=== PATIENT | female | born 1945 | race Caucasian/White ===

== ENCOUNTER → 2020-03-12 10:05 | Outpatient (CLI) | payer MEDICARE, OTHER, SELFPAY ==
[2020-03-12 11:28] LABS: COVID19 -Nasal RAPID Negative (Negative)
== END ==
PROVIDERS: Family Provider Family Medicine; PCP Family Medicine; Referring Provider Physician Assistant; Visit Provider Physician Assistant
DX: Z20.828 Contact with and (suspected) exposure to other viral communicable diseases (principal)
CPT/HCPCS: 87635

== ENCOUNTER 2020-03-14 11:09 | Inpatient (IN) | payer MEDICARE, OTHER, SELFPAY ==
[2020-03-07 10:07] VITALS: BMI 27.3
[2020-03-14] VITALS (19 sets, daily range): BP systolic 127–174; BP diastolic 71–94; PULSE 64–77; RESP 10–94; TEMP 36.2–37.4; O2SAT 10–99; BMI 27.3
[2020-03-14] MEDS: PREGABALIN 75 MG CAPSULE PO ×2 (12:00→12:01)
[2020-03-14] MEDS: CELECOXIB 200 MG CAPSULE PO (12:01)
[2020-03-14] MEDS: ACETAMINOPHEN 325 MG TABLET 975 MG PO (12:01)
[2020-03-14] MEDS: LACTATED RINGERS 1,000 ML 42 ML IV ×2 (12:05→14:59)
--- NOTE | 2020-03-14 12:18 | DI.RAD.S_ITS ---
PROCEDURE: XR SHOULDER RT MIN 2V INDICATIONS: post operative reverse total shoulder TECHNIQUE: Single frontal view of the shoulder were acquired. COMPARISON: None. FINDINGS: Bones: No fractures or dislocations. No suspicious bony lesions. Visualized ribs appear intact. Soft tissues: No suspicious soft tissue calcifications. IMPRESSION: Normal alignment after right total shoulder arthroplasty. Dictated by: Deric Butler M.D. on 03/14/2020 at 16:23 Approved by: Deric Butler M.D. on 03/14/2020 at 16:23
--- NOTE | 2020-03-14 12:31 | PM.PREOP ---
Pre-operative Note COVID-19 COVID-19 status: Negative Result date/Date tested (Pos, Neg/Pending): 03/12/20 Interval Note History & Physical reviewed/Exam performed by Physician: Yes Changes to H&P: No
[2020-03-14 13:11] LABS: HEMOLYSIS < 15 (0-50); Potassium 3.2 mmol/L (3.4-5.1)
--- NOTE | 2020-03-14 13:28 | SUR.PREOP ---
Block start time [1320] . Monitoring initiated and maintained throughout procedure. Oxygen and medications given per anesthesiologist instructions. Patient remained stable throughout procedure, no adverse reactions noted. Block end time [1328].
[2020-03-14] MEDS: MIDAZOLAM 2 MG/2 ML VIAL IV (13:29)
[2020-03-14] MEDS: fentaNYL 100 MCG/2 ML INJ 50 MCG IV (13:29)
[2020-03-14] MEDS: CEFAZOLIN 2 GM/100 ML FROZ.PIGGY IV (13:41)
[2020-03-14] MEDS: TRANEXAMIC ACID 1,000 MG VIAL 1000 MG INJ (13:59)
--- NOTE | 2020-03-14 14:12 | SUR.OPER ---
Beach chair with Shanae/Mya shoulder positioner. Lower body on padded OR bed. Head in foam padded head cradle, secured with straps. Non-operative arm secured <90 degrees abduction. Pillow under knees. Safety belt at thigh. Cloth tape over blanket over lower legs.
[2020-03-14] MEDS: BUPIVACAINE 0.5% W/ EPI (PF) 30 ML VIAL INJ (14:25)
--- NOTE | 2020-03-14 14:56 | P.PCN_ITS ---
Procedures Date/Time Date of procedure: 03/14/20 Time of procedure: 13:20 Nerve Block Time out performed: Yes Local anesthetic used: other ( 8ml Ropivacaine 0.5% and 2ml Lidocaine 2% with epi) Location of anesthetic used: Right Interscalene groove Amount of anesthesia used (mL): 10 Nerve blocks: brachial plexus (Right Interscalene block) Procedure successful: Yes Patient tolerated procedure: well and no complications Additional comments: Patient for Reverse Right Total Shoulder Arthroplasty and plan is to perform right Interscalene block for post-op pain management. Ultrasound and Nerve Stimulator techniques to be utilized. Patient in Pre Op block room. Consent signed. Routine ASA monitors and O2 per NC. HOB elevated ~30 degrees. IV sedation provided with Versed 1mg and Fentanyl 50mcg. Cloroprep and sterile drapes applied. Ultrasound visualiztion of Brachial Plexus confirmed. Local skin wheal with Lidocaine 1%, 25g. 22g 50mm Stimex needle advance. Immediate Deltoid twitch; twitch disappeared at 4mAmp. Needle pulled out ~1mm. Negative aspiration followed by 2ml test dose. Incremental aspiration/dosing to a total volume of 10ml and confirmation of spread to heidi- brachial plexus. Patient tolerated procedure well and was ready for transfer to the OR for surgical procedure. No complications noted.
--- NOTE | 2020-03-14 15:47 | P.OP_ITS ---
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 Right reverse total shoulder 2. A cerclage fixation of iatrogenic proximal humerus fracture Same procedure as scheduled: No (Proximal humerus fracture was not scheduled) Indications: The patient is had chronic right shoulder pain unresponsive to nonoperative therapies. Radiographic studies have revealed changes consistent with a severe deformity with essentially a reverse total shoulder bony anatomy. They have elected to proceed with reverse total shoulder replacement after discussion of the risks benefits and alternatives. Risks discussed included but were not limited to: Failure to improve, instability, infection, nerve damage, deep venous thrombosis, pulmonary embolism, stroke, coma, myocardial infarction and . Surgeon: Michael Alcantara Ict Support And Test Engineers: Annette Martin Click Yes if Unassisted: No Anesthesia Type: General, Peripheral nerve block and Local Operative Notes Findings: Severe deformity with loss of entire proximal humeral head with a socket type anatomy of the proximal humeral metaphysis with hard cortical bone. In addition the glenoid had eroded the inferior half with again severely eburnated sub chondral bone. Closure Type: primary Specimen(s): none sent Prosthetic devices, grafts, tissues, transplants, or devices: Implants used in this procedure were manufactured by the [employer] and included a Revers total shoulder system with a 24 mm 10 degree full augment base plate, a 4.5 x 32 mm nonlocking screw and 25.5 mm locking screws measuring 28 and 16 mm in length. There was a 36 neutral cup with a 36+ 3 humeral insert and a size 5 modular stem there was also a 30 3+4 glenosphere with retaining screw. In addition an [employer] Fiber[employer] cerclage was used. Applied: implant(s) Estimated Blood Loss (mL): 100 Blood products transfused: none Procedure in detail: The patient was seen in the preoperative area where they identified the right shoulder as the operative site and this was marked with my initials. They received preoperative antibiotics and underwent the induction of an interscalene block. They were taken to the operating room and placed on the operating room table in a supine position with the underwent the induction of a general anesthetic. There were then repositioned in the ?beach chair? position using a dedicated positioner. All pressure points were well padded. The knees were slightly bent to prevent tension on the sciatic nerves. The right arm was prepared from the fingertips to the base of the neck with ChloraPrep in the usual fashion and draped through sterile drapes. An approximately 10 cm incision was created starting at the clavicle just above the coracoid and going to the deltoid insertion. The deltopectoral interval was used to access the shoulder taking the vein to the lateral side. The vein was protected throughout the case. The upper 1 cm of the pectoralis major was released. The biceps groove was identified and used as a guide to releasing the remaining subscapularis. The biceps itself had previously ruptured. The subscapularis was released from the lesser tuberosity. The shoulder was dislocated the proximal humerus was inspected. This was found to have a cup type anatomy and to be extremely eburnated cortical bone. I did not perform a humeral osteotomy instead we just placed retractors to approach the glenoid. The soft tissues were removed circumferentially around the glenoid, with care to remain on bone to avoid the axillary nerve. The guide was used to drill the guide hole in the center of the glenoid, just above the line where the angle on the glenoid changed from vertical to approximately 20? downwards. The 10 degree angled Reamer was then applied and used to create enough of a flat surface to support the glenoid base plate. The glenoid base plate was then assembled and impacted into the appropriate position for the 10 degree augment. The inferior hole was filled with a nonlocking screw to provide additional compression. The superior and posterior locking screws were then placed. The anterior locking screw hole would not have had any contact with bone due to the significant narrowing and deformity of the glenoid and was left unfilled. The glenosphere was then placed and impacted into position. Stability was checked prior to placing the set screw. We then approached the proximal humerus. I used 2 drills to initiate a hole over the center of the humeral canal. The cylinder cul reamers were then used. I used a combination of drills, osteotomes and rongeur to create an opening in the proximal humerus to allow the placement of the broach. Part way during this process the broach was placed senior living down and used to kim the appropriate version for the creation of the hole. Using the smallest possible broach I impacted the canal. Despite being delicate with the amount of force used, a proximal metaphyseal fracture occurred due to the strong cortical bone. A cerclage tape was placed circumferentially around the humerus and clamped to provide some fixation. Broaching then continued. The metaphyseal humerus was reamed to accept the cup of the prosthetic. The trial metaphyseal portion of the body was then applied to the broach. Trial reductions were performed and the size of the cup was optimized. Stability was checked in maximal internal and external rotation and range of motion was checked to allow access to the top of the head, internal rotation to an excess of 50? in the ?scarecrow position? and the ability to reach the groin. The appropriate final prosthetic components were then opened. The humeral prosthetic was then impacted almost completely into position. The cerclage suture was then tied and the prosthetic seated fully. I tested rotational stability which was excellent. The humeral cup was placed. The joint was relocated and irrigated. There was no way to repair the subscapularis as her offset had been significantly restored and it would no longer reach to the lesser tuberosity. The deltopectoral interval was reapproximated with 0 Vicryl. Subcutaneous layer was closed with interrupted 3-0 Vicryl and skin with a running 3 0 V lock suture. Subcutaneous tissues were then infiltrated with 0.5% Marcaine for postoperative pain control. An Aquacel Ag dressing was applied and the patient's arm was placed in a sling. The patient was then transferred to the recovery room in good condition having tolerated the procedure well. Complications: other (Proximal humeral fracture as noted above.) Post-operative Condition: stable Disposition: PACU Plan for aftercare: The patient will be allowed to use her arm below shoulder level in front of her body. She will be allowed to do pendulum exercises. She will largely remain in his sling except for the above exercises and hygiene. She likely will be discharged tomorrow.
[2020-03-14] MEDS: OXYCODONE IR 5 MG TABLET PO ×2 (16:16→21:09)
[2020-03-14] MEDS: fentaNYL 100 MCG/2 ML INJ IV ×2 (16:21→16:28)
[2020-03-14] MEDS: HYDROMORPHONE 2 MG INJ IV (16:37)
[2020-03-14] MEDS: LACTATED RINGERS 1,000 ML 100 ML IV (17:32)
--- NOTE | 2020-03-14 20:59 | PC.NURSE ---
Evening Shift Note Upon chart review several PACU orders active and duplicate on chart. This RN reviewed orders and discontinued them per protocol and change in level of care.
[2020-03-14] MEDS: ACETAMINOPHEN 325 MG TABLET 650 MG PO (21:08)
[2020-03-14] MEDS: BUSPIRONE 5 MG TABLET 10 MG PO (21:09)
[2020-03-14] MEDS: ATORVASTATIN 20 MG TABLET 40 MG PO (21:09)
[2020-03-14] MEDS: TRAZODONE 100 MG TABLET PO (21:09)
[2020-03-14] MEDS: PREGABALIN 75 MG CAPSULE 150 MG PO (21:10)
[2020-03-14] MEDS: levETIRAcetam 250 MG TABLET 1000 MG PO (21:10)
[2020-03-14] MEDS: DONEPEZIL 5 MG TABLET 10 MG PO (21:10)
[2020-03-14] MEDS: OXYCODONE IR 10 MG TABLET PO (22:10)
[2020-03-15 01:15] VITALS: BP 123/60; PULSE 58; RESP 16; TEMP 37; O2SAT 98
[2020-03-15] MEDS: OXYCODONE IR 5 MG TABLET PO (01:16)
[2020-03-15 03:15] VITALS: BP 131/75; PULSE 61; RESP 16; O2SAT 98
[2020-03-15] MEDS: HYDROMORPHONE 0.5 MG INJ 0.2 MG IV (03:26)
[2020-03-15] MEDS: OXYCODONE IR 10 MG TABLET PO ×2 (05:33→09:15)
[2020-03-15 06:11] LABS: Hematocrit 31.9 % (36-46); Hemoglobin 10.6 g/dL (12.0-16.0)
[2020-03-15 07:21] VITALS: PULSE 61; RESP 18; O2SAT 99
[2020-03-15 07:25] VITALS: O2SAT 97
[2020-03-15 07:30] VITALS: BP 120/64; PULSE 61; RESP 16; TEMP 36.6; O2SAT 95
--- NOTE | 2020-03-15 07:47 | PM.DS.1 ---
History of Present Illness History of Present Illness Date Patient Seen: 03/15/20 Time Patient Seen: 07:47 Chief complaint: Right Total Shoulder Arthroplasty - Reverse Narrative: The history and physical is contained in the chart previously completed note. Please refer to that note for this information. Discharge Providers Provider Date of admission: 03/14/20 11:09 Discharge Date: 03/15/20 Primary care physician: Ulises Marina MD Consults: 03/14/20 17:20 Consult to Discharge Planning Routine Comment: Consult to Physical Therapy Evaluate & Treat Comment: shoulder level Physician Instructions: pendulums. May use hand in front of body below kiera Consult to Respiratory Therapy Evaluate & Treat Comment: Physician Instructions: Evaluate and treat Discharge provider: Michael Alcantara MD Summary Hospital Course Discharge Diagnosis: 1. 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 Iatrogenic proximal humerus fracture 3. Post hemorrhagic anemia Hospital Course: The patient was admitted to the hospital and taken directly to the operating room on March 14, 2020. She underwent a right reverse total shoulder which was complicated by a minor proximal humeral fracture upon stem insertion. This was treated with cerclage. It did not appear to affect the stability of the prosthesis. She was stable overnight and appeared to be ready for discharge the following morning. Status at Discharge Functional status at discharge: independent ambulation Overall status at discharge: patient is progressing back to baseline Time Spent with Patient Time spent: Less than 30 minutes Exam Vital Signs (past 8 hours): - 03/15/20 01:15 03/15/20 03:15 03/15/20 07:21 Temperature 98.6 F Pulse Rate 58 L 61 61 Respiratory Rate 16 16 18 Blood Pressure 123/60 131/75 Pulse Oximetry 98 98 99 03/15/20 07:25 Temperature Pulse Rate Respiratory Rate Blood Pressure Pulse Oximetry 97 Oxygen Delivery Method Room Air Oxygen Flow Rate 2 Narrative Exam Narrative: Right shoulder is moderately swollen. There is minimal pain on gentle motion with no crepitus. Light touch is intact in the radial, ulnar, median, muscular cutaneous and axillary nerve distribution. She can extend her thumb, abduct her thumb, abduct her fingers and can fire her biceps and deltoid. Objective Labs Result Diagrams: 03/15/20 05:25 Labs: Laboratory Results - last 24 hr 03/14/20 03/15/20 12:45 05:25 Hgb 10.6 L Hct 31.9 L Potassium 3.2 L PFSH Medical History (Updated 03/07/20 @ 12:20 by Sylwia Humphreys RN) Acid reflux Anxiety Asthma CVA (cerebral vascular accident) Depression Easy bruisability History of ETOH abuse HLD (hyperlipidemia) Memory deficit Pneumonia Rheumatoid arthritis Right homonymous hemianopsia Seizure disorder TIA (transient ischemic attack) Visual acuity reduced Surgical History (Updated 03/07/20 @ 12:20 by Sylwia Humphreys RN) History of arthroplasty of left shoulder History of arthroplasty of right hip History of back surgery History of hysterectomy Hx of cholecystectomy Hx of craniotomy (05/04/16) Hx of hernia repair Social History household members: spouse Smoking Status: Never smoker alcohol intake: former Discharge Assessment & Plan Assessment and Plan Assessment: The patient is stable postoperative day 1 after her reverse total shoulder on the right. She underwent cerclage fixation of a minor proximal humerus fracture which occurred due to the extreme eburnation of the bone when the broach was inserted. She has mild, asymptomatic post hemorrhagic anemia. Plan of Treatment: Discharge to home today. Follow up my office in 10-14 days. She may use her arm in front of her body below shoulder level. She may do pendulum exercises. She has been given a prescription for oxycodone for pain relief. She is already on Plavix so will not be given additional aspirin for DVT prophylaxis. Discharge Plan Discharge Plan Patient Disposition: Home Discharge orders & Medications Prescriptions: New oxycodone 5 mg Tablet 5 mg PO Q4H PRN (Reason: Pain, Moderate (4-6)) Qty: 40 RF: 0 Continued atorvastatin 40 mg Tablet 40 mg PO BEDTIME RF: 0 trazodone 50 mg Tablet 100 mg PO BEDTIME RF: 0 donepezil 10 mg Tablet 10 mg PO BEDTIME RF: 0 famotidine 40 mg Tablet 40 mg PO DAILY RF: 0 prednisone 5 mg Tablet 5 mg PO DAILY RF: 0 diphenoxylate-atropine [Lomotil] 2.5-0.025 mg Tablet 1 - 2 tab PO DAILY PRN (Reason: Diarrhea) RF: 0 acetaminophen 500 mg Tablet 1,000 mg PO QD-BID PRN (Reason: Pain) RF: 0 buspirone 10 mg Tablet 10 mg PO TID RF: 0 montelukast 10 mg Tablet 10 mg PO DAILY RF: 0 albuterol sulfate 90 mcg/actuation Hfa Aerosol Inhaler 2 puff INHALATION Q4-6H PRN (Reason: Shortness Of Breath) RF: 0 sertraline 50 mg Tablet 25 mg PO DAILY RF: 0 Restasis 0.05 % Dropperette 2 drp EYE-BOTH BID RF: 0 pregabalin 75 mg Capsule 150 mg PO BID RF: 0 levetiracetam [Keppra] 1,000 mg Tablet 1,000 mg PO BID RF: 0 Zyrtec 10 mg Capsule 10 mg PO DAILY RF: 0 clopidogrel 75 mg Tablet 75 mg PO DAILY RF: 0 Follow up/Referrals: Ulises Marina MD [Primary Care Provider] - Michael Alcantara MD [Physician] - 2 Weeks Discharge Health Status Multidrug resistant organism: No MDRO Diet/Activity/Treatments Diet: Diet as Tolerated and Regular Activity: You may use your right hand in front of your body below shoulder level. You may do pendulum exercises. Cold/Heat Therapy: Apply ice to the right shoulder for 15 minutes every hour as needed for pain control. Skin/Wound/Dressing Care Report to your healthcare provider any signs of infection, such as:: chills, fever, night sweats, increased pain, unusual drainage and unusual redness Dressing: Leave the dressing in place until postoperative follow-up. You may shower with the dressing in place. If the central strip of the dressing becomes saturated with either water or blood, please call the office to have it evaluated. Visit Report/Discharge Packet Instructions: DI for Prescription Opioid Use, DI for Shoulder Replacement Stand Alone Forms: Surgery Discharge Discharge Data Primary Care Provider: Ulises Marina
--- NOTE | 2020-03-15 08:47 | CM.DANOTE ---
Addendum entered by Moon Martinez LPN 03/15/20 09:06: Met with pt and introduced self and role. Pt confirms that her plan is for her to be here about 1100 today and he will be helping her after d/c. She says she has a hx of small strokes and that the last one, a couple of years ago, left her with impaired memory so she very much needs her to be present during any teaching. Spoke with PT Karla who confirms she will be seeing pt today and updated her on above. (RN caring for pt was with another pt so unable to update her at this time.) P: at this time: home today after pt and spouse work with PT. Will follow for any d/c needs that may arise. Original Note: Discharge Planning/Care Management DCP: assessment: case received, EMR reviewed. DC order noted. Pt is a 75 year old female who admitted yesterday for a scheduled R TSA. Complication noted: minor proximal humeral fracture during the surgical process. Pt has hx L TSA. Payer: Medicare and [facility]. Plans home with spouse Juan's supportive assist. No therapy note is available at this time. Will check in with pt and follow prn. CM Discharge Assessment Start: 03/15/20 08:46 Freq: Status: Active Protocol: Document 03/15/20 08:46 ITV (Rec: 03/15/20 08:47 ITV [id number]) Discharge Planning Assessment Advance Directives? No History Provided By Patient,Medical Record Prior Living Arrangements House Household Members spouse Review Status In Process Pre-Anesthesia Assessment Start: 03/07/20 10:07 Freq: Status: Active Protocol: Document 03/07/20 10:07 CAB (Rec: 03/07/20 11:02 CAB [id number]) Pre-Anesthesia Assessment Patient Information Reviewed Via Phone Assessment Assessment Completed With Patient,Spouse Comment Pt gave verbal approval to speak with spouse for PAC assessment Diagnostic Results BMP/CMP,CBC,EKG Comment Outside labs/EKG scanned- needs to schedule COVID screen Primary Care Provider Ulises Marina Medical Clearance Received Yes Seen Specialist in Last 12 Months Yes Specialist Seen Orthopedist,Other Comment PCP clearance scanned, Neurology(last visit 03/03/20 scanned), Rheumatology Primary Language Guatemalan Rate Marker Required No Height 147.32 cm Weight 59.421 kg Body Mass Index (BMI) 27.3 Hearing Ability Hard of Hearing Visual Impairment Severely Limited Dentition Type Teeth, Natural Present,Full- Lower Barriers to Learning Cognitive impairment,Cognitive /Verbal,Memory,Reading skills, Visual Comment R/t CVA Hx Anesthesia Reactions No Hx Family Anesthesia Reaction No Hx Malignant Hyperthermia No Hx Blood Transfusions No Anesthesia Review Requested Yes: PAC Courtesy re: Medical history alcohol intake former Alcohol Intake Frequency Other: Stopped approx 1 year ago, r/t ETOH abuse Smoking Status Never smoker Substance Use Type does not use Pain Present Pain Reported Musculoskeletal Symptoms Abnormal Gait,Back Pain, Difficulty Walking,Joint Pain, Limited Range of Motion History of Falling (Recent or History of No ) Patient is completely paralyzed or No completely immobile Prosthesis or Orthotic Device Front Wheel Walker Mental Status Forgets limitations Is patient on oxygen? No Does patient have DENG/SOB Yes: r/t Asthma Hx Sleep Apnea No Currently Taking a Beta Rona No Can You Climb a Flight of Stairs Without No SOB Hx Chest Pain No Hx SOB Yes: r/t Asthma Hx Syncope or Dizziness No Anti-Coagulant Therapy Yes: Plavix-advised to hold per PCP Has a Whipper No Cardiac Testing No Hx Pacemaker/ICD No Pacemaker Rep Required? No Cardiac Clearance Received Not Applicable Diet Type At Home Regular dysphagia No Gastrointestinal Symptoms Diarrhea,Reflux Urinary Catheter Present No Hx Urinary Self Catheterization No Diabetes No Patient No Lactating No Hx Drug Resistant Organism No Presence of External or Internal Medical Yes: Right hip, left shoulder Devices prosthesis Have you had any close contact with No someone diagnosed with COVID-19? Marital Status Lives With spouse Prior Living Arrangements House Number of Floors (Floors) One Floor Support System Spouse Does the Patient Have Assistance After Yes Surgery Patient Discharge Plan Description Return Home Comment Pt advised 1-2 day length of stay per surgeon Feels Safe in Current Environment Yes Been Physically Hurt or Threatened By a No Person in Current Environment Do you have thoughts of harming yourself None or others? Are you currently considering suicide? No Do you have a plan to hurt yourself or No Plan others? Do You Have Any Spiritual Beliefs That No May Affect Your HC Choices? Do You Have Any Cultural Practices That No May Affect Your HC Choices? Comment Mormon Who Can We Speak to About Patient's Care Family, friends Identifying Code for Release of Patient Declines to issue Information Health Care Proxy/Next of Kin Juan () Health Care Proxy or [phone] Emergency Contact Name Juan () Emergency Contact or [phone] Advance Directives? No Power of Area Field Worker No PAC Instructions Do not shave/clip surgical site,Medications to take/avoid ,Nasal antibiotic,No ETOH/ petroleum product on skin DOS, NPO,Post-op transportation,Pre -surgical wash,Sensory aids, Sturdy shoes/comfortable clothes,Do not bring valuables and remove jewelry
[2020-03-15] MEDS: ACETAMINOPHEN 325 MG TABLET 650 MG PO (09:14)
[2020-03-15] MEDS: predniSONE 5 MG TABLET PO (09:15)
[2020-03-15] MEDS: CLOPIDOGREL 75 MG TABLET PO (09:15)
[2020-03-15] MEDS: SERTRALINE 50 MG TABLET 25 MG PO (09:15)
[2020-03-15] MEDS: LORATADINE 10 MG TABLET PO (09:15)
[2020-03-15] MEDS: DOCUSATE 100 MG CAPSULE PO (09:15)
[2020-03-15] MEDS: levETIRAcetam 250 MG TABLET 1000 MG PO (09:16)
[2020-03-15] MEDS: PREGABALIN 75 MG CAPSULE 150 MG PO (09:16)
[2020-03-15] MEDS: FAMOTIDINE 20 MG TABLET 40 MG PO (09:16)
[2020-03-15] MEDS: MONTELUKAST 10 MG TABLET PO (09:16)
[2020-03-15] MEDS: BUSPIRONE 5 MG TABLET 10 MG PO (09:16)
--- NOTE | 2020-03-15 10:50 | PT.IIE ---
Current Diagnoses Charcot's joint, right shoulder (03/14/20) Primary osteoarthritis, right shoulder (03/14/20) Surgery Performed Operation Date: 03/14/20 12:45 Actual Procedures p Total Shoulder Arthroplasty - Reverse(Right) - Michael Alcantara MD Surgical History (Last Updated 03/07/20 @ 12:20 by Sylwia Humphreys RN) History of arthroplasty of left shoulder History of arthroplasty of right hip History of back surgery History of hysterectomy Hx of cholecystectomy Hx of craniotomy (05/04/16) Hx of hernia repair Medical History (Last Updated 03/07/20 @ 12:20 by Sylwia Humphreys RN) Acid reflux Anxiety Asthma CVA (cerebral vascular accident) Depression Easy bruisability History of ETOH abuse HLD (hyperlipidemia) Memory deficit Pneumonia Rheumatoid arthritis Right homonymous hemianopsia Seizure disorder TIA (transient ischemic attack) Visual acuity reduced Physical Therapy Inpatient Evaluation/Re-Eval M1 PT/OT-IP Prior Functional Status Start: 03/15/20 08:57 Freq: NEEDED Status: Discharge Protocol: Document 03/15/20 10:49 AW (Rec: 03/15/20 11:26 AW [id number]) Medical Review Prior Functional Status Medical History Reviewed Yes Communication Pt has history of CVA which she states rendered her forgetful. She has blurry vision after the stroke. Communication is WFL but pt requires frequent reminders and requires extra processing time. Mobility and Gait Pt has chronic low back pain. She tends to use a FWW when she is having a bad morning due to pain but is otherwise independent with household mobility. She rarely leaves the house except for doctor appointments. Activities of Daily Living and IADL's Pt uses a stool and SBA for showers but is otherwise independent with ADL's. She does not drive due to vision deficits. Prior Functional Level (Other details) Pt is right handed, has history of L TSA, R KAYLEIGH, RA, and CVA. Social History Household Members spouse Living Arrangements House Number of Floors (Floors) One Floor Number of Stairs To Enter/Railing? 1 step up to the porch and one step into the house with no railings. Home Environment High Toilet,Walk in Shower Home Equipment Front Wheel Walker,Straight Cane,Shower Seat without Backrest,Hand Held Shower,Grab Bars In Shower Employment Status Retired Additional Social History Comment Pt has a wall on the left side of the toilet which she can use for stability during transfers. Her bed is adjustable but she prefers not to use the controls. She lives with her spouse, Juan, who is also retired and available to assist but he his mobility is somewhat limited. M2 PT-IP Current Condition Start: 03/15/20 08:57 Freq: NEEDED Status: Discharge Protocol: Document 03/15/20 10:49 AW (Rec: 03/15/20 11:26 AW [id number]) Physical Therapy Current Condition Current Condition Evaluation Date 03/15/20 Treatment Diagnosis R reverse TSA; iatrogenic proximal humerus fracture; difficulty in walking Precautions Shoulder Precautions Sling,PROM,Internal Rotation to Body,No External Rotation, No Abduction,Forward Flexion to 90 degrees,Pendulums Brace soft sling except for ROM and hygiene M3 PT-IP Subjective Start: 03/15/20 08:57 Freq: NEEDED Status: Discharge Protocol: Document 03/15/20 10:49 AW (Rec: 03/15/20 11:26 AW [id number]) Subjective Physical Therapy Visit Type Type Initial Evaluation Visit Start Time 10:14 Visit Stop Time 10:49 Total Visit Minutes 35 Notes Pt's spouse is present throughout evaluation Physical Therapy Visit Comments Patient Comments Pt is willing to participate with PT Therapy Pain Assessment Pain When Pain Assessed At Rest Pain Present Pain Present Pain Reported Location RIGHT SHOULDER Intensity 8 Scale Used Numeric (0 - 10) Pain Management Techniques Distraction,Re-positioning, Timing of Activity with Medications M4 PT-IP Mobility and Gait Start: 03/15/20 08:57 Freq: NEEDED Status: Discharge Protocol: Document 03/15/20 10:49 AW (Rec: 03/15/20 11:36 AW [id number]) PT-Bed Mobility Assessment Supine to Sit Supine to Sit Minimal Assistance,1 Person Assistance Sit to Supine Sit to Supine Standby Assistance Scooting Scooting to Edge of Bed Standby Assistance PT-Transfer Assessment Sit to and From Stand Sit to and from Stand Standby Assistance Equipment Transfer Assistive Device Gait Belt Orthotic/Prosthetic Devices or Brace: No Transfers Transfer Destination Bed Transfer Technique pt ambulated without AD Transfer Ability Level of Assist Standby Assistance Comments Mobility Comments Pt was lying in bed as PT arrived. BP was 109/66 HR 60. Pt required min 1PA to complete supine to sit. This bed is too soft! Sitting EOB, pt did not complain of increased pain. She stood from the bed SBA with some initial unsteadiness but she was able to recover without assist. Pt ambulated to the sink CGA and PT completed education on proper sling fitting. Pt's spouse observed and participated to be able to assist pt at home. Pt returned to the bed CGA and sat. PT brought SPC and platform step into the room. Pt stood and attempted to use the SPC but found it awkward, preferring to attempt the stair without a device. With ALMOND GRINDER on the left side, pt completed platform step x 2 with good steadiness. Pt then ambulated in the halls SBA a total of 120 feet. Gait quality improved outside of the small space in the room. Pt returned to the room and completed sit to supine SBA. Pt was positioned with call light and all needs in reach and bed alarm armed for safety. Gait Assessment Gait Gait Assistance Required: Standby Assistance,Contact Guard Assist Distance (Feet) 120 Able to Maintain Weight Bearing Status Yes During Gait Assistive Devices Assistive Device None,Gait Belt Orthotic/Prosthetic Devices or Brace: Yes Gait Deviations General Gait Pattern Antalgic,Decreased Stride Length,Decreased Feet Clearance,Flexed Trunk,Lateral Trunk Lean Factors Limiting Gait Function Factors Limiting Gait Function Decreased Activity Tolerance, Decreased Sensation,Decreased Strength,Limited Range of Motion,Pain,Poor Balance,Poor Safety Awareness Comments Gait Comments Pt leans to the right in standing and during gait secondary to deficits from prior CVA. She denied need for AD and ambulated safely in open space of the hallway. Gait was more unsteady with initiation and in small spaces . Stair Climbing Assessment Evaluation Level of Assist On Stairs Contact Guard Assistance Devices Stair Climbing Assistive Devices None Technique/Endurance Stair Climbing Direction Ascend and Descend Stair Climbing Technique Step to Step Number of Steps Climbed 1 Query Text: Stair Climbing Set # Repetitions (reps) 2 Comments Stair Climbing Comments ALMOND GRINDER left side which will be able to provide at home. PT-Balance Assessment Sitting Balance and Reactions Static Sitting Balance Ability Good Dynamic Sitting Balance Ability Good Standing Balance and Reactions Static Standing Balance Ability Good Dynamic Standing Balance Ability Fair Device Used none M5 PT-IP Objective Assessments Start: 03/15/20 08:57 Freq: NEEDED Status: Discharge Protocol: Document 03/15/20 10:49 AW (Rec: 03/15/20 11:36 AW [id number]) Orientation Orientation/Cognition Level of Alertness Alert Orientation Name,Day of Week,Place, Situation Language Function Ability No Deficits Noted Safety Awareness Decreased Safety Awareness Memory Description Short Term Impaired,Tractor Driver Teamster Impaired Comments Pt has memory deficits secondary to prior CVA. Gross Range of Motion Upper Extremity ROM Assessment Right Impaired Lower Extremity ROM Assessment Within Functional Limits Strength Upper Extremity Strength Assessment Right Impaired Lower Extremity Strength Assessment Within Functional Limits Coordination Assessment Gross Coordination Gross Coordination WNL Sensation Assessment Sensation Gross Sensation Right LE Impaired,Left LE Impaired Light Touch Impaired Sensation Description Numbness Comments Sensation Comments Pt endorses numbness in bilateral plantar feet and dorsal webspace of 1st digit Muscle Tone Muscle Tone WNL Yes M6 PT-IP Treatment Start: 03/15/20 08:57 Freq: NEEDED Status: Discharge Protocol: Document 03/15/20 10:49 AW (Rec: 03/15/20 11:39 AW [id number]) Physical Therapy Treatment Exercises Exercises Shoulder Pendulums,Elbow Flexion/Extension,Wrist ROM, Hand ROM Education Education Provided Precautions,Weight Bearing Status,Post-Op Packet,Safety Brace Education [place],Patient M7 PT-IP Assessment and Plan Start: 03/15/20 08:57 Freq: NEEDED Status: Discharge Protocol: Document 03/15/20 10:49 AW (Rec: 03/15/20 11:39 AW [id number]) PT Summary Assessment and Plan Potential Rehabilitation Potential Good Status of Condition at Evaluation Stable Summary Impairments Pain,ROM,Strength,Balance, Sensation,Cognition,Bed Mobility,Transfers,Gait, Activity Tolerance Assessment Summary Sheri is a 75 yo woman with remote history of L TSA seen for PT evaluation on POD1 following right reverse TSA. She uses a FWW occasionally for household ambulation but is otherwise independent. Community ambulation is much more limited. Pt required min assist of one for bed mobility and CGA to SBA for transfers and ambulation without AD on evlauation. She and her understand how to fit the sling and what her precautions are. She is safe for discharge to home with assist and will benefit from outpatient PT once cleared by her surgeon to increase shoulder ROM and strength. Frequency of Treatment Frequency Of Treatment Discharge Recommendations To Nursing Amount of Assist Needed Standby Assistance Discharge Recommendations PT Discharge Recommendations Home with Assistance, Outpatient PT Transportation Needs at Discharge Private Vehicle
--- NOTE | 2020-03-15 11:21 | PC.NURSE ---
Patient discharged home. Transported to car by wheelchair, driving home. Discharge instructions explained and all questioned answered. Given paper prescription.
== END 2020-03-15 11:22 | disposition home or self-care (01) | DRG 483 ==
PROVIDERS: Anesthesiology; Admitting Provider Orthopaedic Surgery; Family Provider Family Medicine; PCP Family Medicine; Referring Provider Orthopaedic Surgery; Visit Provider Orthopaedic Surgery
PROC: 0RRJ00Z Replacement of Right Shoulder Joint with Reverse Ball and Socket Synthetic Substitute, Open Approach (ICD-10-PCS; CPT 23472; principal; 2020-03-14 12:45)
DX: M06.811 Other specified rheumatoid arthritis, right shoulder (principal); G40.802 Other epilepsy, not intractable, without status epilepticus; M96.621 Fracture of humerus following insertion of orthopedic implant, joint prosthesis, or bone plate, right arm; M14.611 Charcot's joint, right shoulder; E78.00 Pure hypercholesterolemia, unspecified; I10 Essential (primary) hypertension; K21.9 Gastro-esophageal reflux disease without esophagitis; F41.9 Anxiety disorder, unspecified; J45.909 Unspecified asthma, uncomplicated; I69.311 Memory deficit following cerebral infarction; I69.398 Other sequelae of cerebral infarction; F10.11 Alcohol abuse, in remission; Z20.828 Contact with and (suspected) exposure to other viral communicable diseases
CPT/HCPCS: 36415; 64450; 73030; 84132; 85014; 85018; 87635; 94760; 97162; 97530; C1776; C9803; A9270; J0461; J0690; J1100; J1170; J2250; J2405; J2704; J3010

== ENCOUNTER → 2020-08-01 13:42 | Outpatient (CLI) | payer MEDICARE, OTHER, SELFPAY ==
[2020-03-14 20:31] VITALS: BMI 27.3
[2020-08-01 15:12] LABS: COVID19 -Nasal RAPID Negative (Negative)
== END ==
PROVIDERS: Family Provider Family Medicine; PCP Family Medicine; Visit Provider Student in an Organized Health Care Education/Training Program
DX: Z20.822 Contact with and (suspected) exposure to COVID-19 (principal)
CPT/HCPCS: 87635

== ENCOUNTER 2020-08-03 06:23 | Inpatient (IN) | payer MEDICARE, OTHER, SELFPAY ==
[2020-03-14 20:31] VITALS: BMI 27.3
[2020-07-27 12:39] VITALS: BMI 25.9
[2020-08-03] VITALS (20 sets, daily range): BP systolic 120–163; BP diastolic 62–94; PULSE 56–76; RESP 6–18; TEMP 35.9–37.4; O2SAT 94–100; BMI 25.9
[2020-08-03] MEDS: ACETAMINOPHEN 325 MG TABLET 975 MG PO (06:52)
--- NOTE | 2020-08-03 07:32 | PM.PREOP ---
Pre-operative Note COVID-19 COVID-19 status: Negative Result date/Date tested (Pos, Neg/Pending): 08/01/20 Interval Note History & Physical reviewed/Exam performed by Physician: Yes Changes to H&P: No
[2020-08-03] MEDS: LACTATED RINGERS 1,000 ML 42 ML IV ×2 (07:37→09:25)
[2020-08-03] MEDS: CEFAZOLIN 1 GM/50 ML FROZ.PIGGY IV (07:53)
--- NOTE | 2020-08-03 08:28 | SUR.OPER ---
Prone on spine table, head in foam head support, padded chest and pelvic supports, gel pad at knees, lower legs supported by pillows; nipples, genitalia and toes free of pressure, arms secured on foam padded arm boards at <90 degrees abduction. Tape over blanket at thigh secured to table.
[2020-08-03] MEDS: BUPIVACAINE LIPOSOME 266 MG/20 ML VIAL INJ (08:33)
[2020-08-03] MEDS: BUPIVACAINE 0.25% W/ EPI 30 ML VIAL INJ (08:34)
--- NOTE | 2020-08-03 10:56 | DI.RAD.S_ITS ---
PROCEDURE: XR LUMBAR SPINE 2-3V INDICATIONS: L4-5 TLIF TECHNIQUE: 2 views of the lumbar spine were acquired. COMPARISON: [facility], , L-SPINE 2-3 VIEWS, 05/04/2014, 17:57. FINDINGS: Bones: Current imaging is at the completion of lumbosacral spine fusion procedure spanning from L4 through S1, with interbody disc spacing devices at L4-L5 and L5-S1. The disc spacer is at the midline superiorly and eccentric to the left of midline at the L5-S1 level. Soft tissues: Overlying bowel gas pattern is normal. No suspicious soft tissue calcifications. IMPRESSION: Normal alignment is stab wished after spine fusion procedure spanning from L4 through S1 as noted. Dictated by: Deric Butler M.D. on 08/03/2020 at 11:09 Approved by: Deric Butler M.D. on 08/03/2020 at 11:11
--- NOTE | 2020-08-03 10:56 | PM.OP.1 ---
Operative Date/Time/Diagnoses Date of procedure: 08/03/20 Time of procedure: 07:56 Pre-op diagnosis: 1. L4-5 spinal stenosis with radiculopathy 2. Hx of L5-S1 fusion 3. L4-5 spondylosis with radiculpathy Post-op diagnosis: same Procedure & Clinicians Procedure: 1. LL4-5 posterolateral and posterior interbody fusion 2. L4-5 posterior interbody cage placement 3. L5-S1 posterior non-segmental instrumentation removal 4. L5-S1 revision laminectomy with exploration of fusion 5. L4-5, L5-S1 posterior segmental instrumentation with pedicle screw placement 6. L5-S1 posterolatearl fusion 7. [place] of bone marrow from iliac crest through a separate incision 8. Utilization of microsurgical technique and operating microscope Same procedure as scheduled: Yes Indications: Patient has been having chronic back pain and worsening lumbar radiculopathy. Patient had previous lumbar fusion and has been doing well for several years with recent worsening of her back pain and leg pain. Patient failed multiple conservative management with worsening pain weakness and numbness in her lower extremity. Patient has been having difficulty performing activity of daily living. After discussing risks benefits of treatment options, patient elected proceed with surgery. Surgeon: Haritha Brewer Advanced Manufacturing Consultant: Beni Sandoval Click Yes if Unassisted: No Anesthesia Type: General Operative Notes Closure Type: primary Specimen(s): none sent Prosthetic devices, grafts, tissues, transplants, or devices: Globus revolve screws, Rise cage Applied: catheter Estimated Blood Loss (mL): 75 Blood products transfused: none Procedure in detail: Patient was seen in the preoperative area. Risks and benefits of the surgery was discussed with the patient. Informed consent was obtained from the patient and placed in the chart. Surgical site was marked. Patient was taken to the operative room. General anesthesia was administered. Prophylactic antibiotic was given to the patient less than 30 min before the incision was made. Patient was placed into a prone position on the Joce table. Patient's back was then prepped and draped in the sterile fashion. Time-out was performed at this time. Using patient's previous scar incision was made over the L4-5 L5-S1 interval on the left side. Fascia was incised in line with skin incision. Patient's previously placed hardware over the L5-S1 level was identified by dissecting down to the level the hardware using a Bovie and a Dorado. The locking caps which was removed using globus screwdriver. The locking bre was then removed from the t[place]ips of the pedicle screws using a Kiko. The pedicle screws were then removed using the screwdriver. The screws were found to have good purchase. The Globus and MARS retractors was then placed into the wound and docked onto the L4 lamina using C-arm guidance. Using microsurgical technique and operating microscope a laminectomy facetectomy was performed by removing the L4 lamina and the L4-5 facet. The disc space at L4-5 level was identified next. And a total diskectomy was performed at L4-5 level. The endplates were decorticated using a rasp and shaver. The total diskectomy and decortication was performed at L4-5 level in order to to accomplish a L4-5 fusion. The local bone from the laminectomy and facetectomy was saved for local bone grafting. After the total diskectomy and decortication was completed, Globus Trifecta bone graft material was combined with local bone that was harvested earlier. At this time, a separate skin is incision was made over the iliac crest. A Jamshidi needle was inserted into the iliac crest through a separate skin incision. 5 cc of bone marrow aspiration was obtained through the separate skin incision using a Jamshidi needle from the iliac crest. The bone marrow aspiration was combined with local bone and the Trifecta bone grafting material. The bone grafting material was placed into the L4-5 interbody space along with a expandable cage. The cage was expanded to its maximum height using the torque limiting screwdriver. At this time a mirror image incision was made on the right side. The fascia was incised in line with the skin incision. Patient's previously placed hardware on the left side was then removed in the same fashion as it was on the left side. The hardware was also found to have good purchase. The fusion mass on the left side was exposed by performing a right-sided hemilaminectomy at L5-S1 level. The hemilaminectomy was performed using the Kerrison rongeur to undercut the lamina as well removing additional epidural scar tissue for purpose of decompressing the epidural space. The fusion mass was explored and was found have visible motion indicating pseudoarthrosis. Globus MARS retractor was inserted and docked onto the L4-5 L5-S1 posterolateral gutter. Using the power drill, posterior-lateral decortication was performed at L4-5 L5-S1 level until bleeding cortical bone was identified. The remaining bone grafting material was placed into the L4-5 L5-S1 posterior lateral gutter he order to accomplish posterolateral fusion at the L4-5 L5-S1 level. Using the double C-arm technique, pedicle screws were placed into the L4-L5 and S1 pedicles bilaterally. This was done by placing the Jamshidi needle into the pedicles, then placing the guidewires over the Jamshidi needle, and finally placing the cannulated screws over the guidewires bilaterally. After the pedicle screws were placed, 2 titanium rods was locked into the heads of the pedicle screws using locking caps and torque limiting screwdriver. After all the hardware was placed, and confirmed with AP and lateral C-arm imaging, the wound was then irrigated with sterile normal saline and packed with Ray-Héctor gauze for 3 min to accomplish hemostasis. After the gauze was removed the deep fascia was closed with #1 Vicryl suture. The subcutaneous layer was closed with 2-0 Vicryl. The skin was closed with skin gisele. Patient tolerated the procedure well. There were no complications. Complications: none Post-operative Condition: stable Disposition: PACU Plan for aftercare: Admit to inpatient hospital
[2020-08-03] MEDS: HYDROMORPHONE 2 MG INJ IV ×2 (11:24→11:32)
[2020-08-03] MEDS: hydrOXYzine pamoate 25 MG CAPSULE PO ×2 (11:24→17:39)
[2020-08-03] MEDS: OXYCODONE IR 5 MG TABLET PO ×4 (11:24→19:05)
--- NOTE | 2020-08-03 12:30 | SUR.PHASEI ---
1115 pt. noted to have some very superficial red abrasions reported caused by paper tape to secure ETT per anesthesia. verbal order taken for topical vaseline, or bacitracin, ongoing monitoring.
[2020-08-03] MEDS: SODIUM CHLORIDE 0.9% 1,000 ML 100 ML IV ×2 (13:29→21:54)
--- NOTE | 2020-08-03 13:51 | PC.NURSE ---
Pt brought to the AC floor via PACU at approx. 1223. She has reported pain 10/10 to her surgical site but falls asleep quickly. FLACC is 0. Pt has been educated to the fact that giving her more pain medication at this time would not be safe. Respirations have been counted by this nurse as 6-8/per minute with snoring. Pt is closely monitored by this nurse. Pulse oximetry/capnography 97% on 2L O2. She is easily arousable. When awakened she has been re-educated to the pain scale. She reports pain to her back as 6/10. Pt has been repositioned on her right side with ice applied to surgical site and pillow behind her back and is resting soundly. RR have increased to 12/min. Apneic episodes witnessed.
[2020-08-03] MEDS: BUSPIRONE 5 MG TABLET 10 MG PO ×2 (15:02→21:11)
[2020-08-03] MEDS: CEFAZOLIN 1 GM VIAL IV (17:38)
[2020-08-03] MEDS: levETIRAcetam 250 MG TABLET 1000 MG PO (21:10)
[2020-08-03] MEDS: PREGABALIN 75 MG CAPSULE 150 MG PO (21:10)
[2020-08-03] MEDS: DOCUSATE 100 MG CAPSULE PO (21:10)
[2020-08-03] MEDS: TRAZODONE 50 MG TABLET 100 MG PO (21:11)
[2020-08-03] MEDS: ATORVASTATIN 20 MG TABLET 40 MG PO (21:11)
[2020-08-03] MEDS: SENNOSIDES 8.6 MG TABLET 17.2 MG PO (21:11)
[2020-08-03] MEDS: HYDROMORPHONE 0.5 MG INJ 0.2 MG IV (21:12)
[2020-08-03] MEDS: DONEPEZIL 5 MG TABLET PO (21:57)
[2020-08-04] VITALS (9 sets, daily range): BP systolic 96–144; BP diastolic 49–89; PULSE 61–79; RESP 16–18; TEMP 36.9–38.1; O2SAT 83–100
[2020-08-04] MEDS: OXYCODONE IR 5 MG TABLET PO (00:11)
[2020-08-04] MEDS: hydrOXYzine pamoate 25 MG CAPSULE PO (00:11)
[2020-08-04] MEDS: CEFAZOLIN 1 GM VIAL IV (00:14)
--- NOTE | 2020-08-04 03:50 | PC.NURSE ---
Pt. C/O pain reports all pain medicine I was taking was not helping, my pain at all or it only helped for a little bit> Dr. Waldron notified see order changed. Dr. WALDRON also ordered to watch her if she's getting too much pain med. Will monitor.
[2020-08-04] MEDS: HYDROMORPHONE 0.5 MG INJ IV ×2 (04:01→06:06)
[2020-08-04] MEDS: OXYCODONE IR 10 MG TABLET PO ×5 (08:58→20:50)
--- NOTE | 2020-08-04 08:59 | P.PN_ITS ---
Subjective Subjective Date Patient Seen: 08/04/20 Time Patient Seen: 09:00 Interval history: Patient states she is in a significant amount of discomfort at rest. At this time the patient denies fever, chills, nausea, chest pain, shortness of breath, or urinary retention. Patient reports good sensation throughout the bilateral lower extremities. Exam Vital Signs (past 8 hours): - 08/04/20 03:42 08/04/20 07:12 08/04/20 07:18 Temperature 99.9 F H Pulse Rate 79 Respiratory Rate 18 Blood Pressure 121/68 Pulse Oximetry 96 97 83 L 08/04/20 07:23 Temperature Pulse Rate 61 Respiratory Rate 16 Blood Pressure Pulse Oximetry 96 Oxygen Delivery Method Nasal Cannula Oxygen Flow Rate 2 Narrative Exam Narrative: Pleasant 75-year-old female postop day 1. Patient is resting in bed, is in mild discomfort, and is alert and oriented x3. Skin is warm and dry, and the skin surrounding the incision site is free of erythema, warmth,or induration. Dressing over the incision site with swelled with blood and ultimately changed. Good sensation appreciated throughout the bilateral lower extremities light touch. Ankle dorsiflexion, plantar flexion, eversion, inversion performed bilaterally without difficulty or discomfort. Palpable pulses appreciated, capillary refill less than 2 seconds. Calves are soft nontender, negative Homans sign. No other signs of DVT appreciated. Const General: cooperative Resp Effort & Inspection: normal respiratory effort and able to speak in complete sentences Skin General: no rashes or lesions noted PFSH Medical History Acid reflux Anxiety Asthma CVA (cerebral vascular accident) Depression Easy bruisability History of ETOH abuse HLD (hyperlipidemia) Memory deficit Pneumonia Rheumatoid arthritis Right homonymous hemianopsia Seizure disorder Spinal stenosis TIA (transient ischemic attack) Visual acuity reduced Surgical History History of arthroplasty of left shoulder History of arthroplasty of right hip History of arthroplasty of right shoulder (03/14/20) History of hysterectomy History of lumbar spinal fusion (2013) Hx of cholecystectomy Hx of craniotomy (05/04/16) Hx of hernia repair Hx of kyphoplasty (~2014) Social History household members: spouse Smoking Status: Never smoker alcohol intake: former Assessment & Plan Post-op Postoperative Procedures: Procedures Operation Date: 08/03/20 07:45 Actual Procedures Side Surgeon p L4-5 TLIF, L5-S1 lumbar HWR, exploration of fusion,L4-S1 PSF w/instrumentation Haritha Brewer MD Postoperative day: 1 Postoperative status: doing well Postoperative plan: ambulate Postoperative plan narrative: Patient is to work on ambulation with the assistance of a front wheeled walker with physical therapy. Decadron will be added to the patient's pain management regimen as her pain is not well- controlled at this time. Patient is to avoid bending, twisting, or lifting in excess of 10 lb. Time Spent With Patient Time with patient: 15-24 minutes Quality VTE Deep Vein Thrombosis/Pulmonary Embolism Present on Admission: No
[2020-08-04] MEDS: BUSPIRONE 5 MG TABLET 10 MG PO ×3 (09:01→20:50)
[2020-08-04] MEDS: DONEPEZIL 5 MG TABLET PO ×2 (09:02→20:51)
[2020-08-04] MEDS: FAMOTIDINE 20 MG TABLET 40 MG PO (09:02)
[2020-08-04] MEDS: DOCUSATE 100 MG CAPSULE PO ×2 (09:02→20:51)
--- NOTE | 2020-08-04 09:02 | CM.IDA ---
Initial DCP Assessment Note Pt is a 75 yo female, resident of [place], now POD#1 from spinal surgery w/ Dr Brewer PCP: Ulises Marina Payer: [facility] Reviewed chart, patient hopeful to return home w/spouse Juan [phone] or [phone] Therapies pending today. Will await therapy dispo recommendation and then review DCP options w/patient and family. Following closely. BIANKA Albarran
[2020-08-04] MEDS: levETIRAcetam 250 MG TABLET 1000 MG PO ×2 (09:03→20:51)
[2020-08-04] MEDS: PREGABALIN 75 MG CAPSULE 150 MG PO ×2 (09:03→20:50)
[2020-08-04] MEDS: LORATADINE 10 MG TABLET PO (09:03)
[2020-08-04] MEDS: MONTELUKAST 10 MG TABLET PO (09:03)
[2020-08-04] MEDS: MEMANTINE HCL 5 MG TABLET PO (09:03)
[2020-08-04] MEDS: SERTRALINE 50 MG TABLET 75 MG PO (09:04)
--- NOTE | 2020-08-04 10:49 | PT.IIE ---
Current Diagnoses Spinal stenosis, lumbar region without neurogenic claudication (08/03/20) Arthrodesis status (08/03/20) Surgery Performed Operation Date: 08/03/20 07:45 Actual Procedures p L4-5 TLIF, L5-S1 lumbar HWR, exploration of fusion,L4-S1 PSF w/instrumentation - Haritha Brewer MD Surgical History (Last Reviewed 08/04/20 @ 09:01 by Beni Sandoval PA-C) History of arthroplasty of left shoulder History of arthroplasty of right hip History of arthroplasty of right shoulder (03/14/20) History of hysterectomy History of lumbar spinal fusion (2013) Hx of cholecystectomy Hx of craniotomy (05/04/16) Hx of hernia repair Hx of kyphoplasty (~2014) Medical History (Last Reviewed 08/04/20 @ 09:01 by Beni Sandoval PA-C) Acid reflux Anxiety Asthma CVA (cerebral vascular accident) Depression Easy bruisability History of ETOH abuse HLD (hyperlipidemia) Memory deficit Pneumonia Rheumatoid arthritis Right homonymous hemianopsia Seizure disorder Spinal stenosis TIA (transient ischemic attack) Visual acuity reduced Physical Therapy Inpatient Evaluation/Re-Eval M1 PT/OT-IP Prior Functional Status Start: 08/04/20 08:39 Freq: NEEDED Status: Active Protocol: Document 08/04/20 10:49 AW (Rec: 08/04/20 12:21 AW [id number]) Medical Review Prior Functional Status Medical History Reviewed Yes Communication Pt has history of CVA with resultant memory impairment. She is able to make needs known. Mobility and Gait Pt states she stays close to furniture at home but typically does not use an AD. She is largely homebound except for doctors appointments. Activities of Daily Living and IADL's Pt states she can dress herself but her helps her don a bra. She showers with a stood and SBA. Her shared cleaning and cooking responsibilities. Pt does not drive. Social History Household Members spouse Living Arrangements House Number of Floors (Floors) One Floor Number of Stairs To Enter/Railing? 1 step to porch and 1 step into house. No railings Home Environment High Toilet,Walk in Shower Home Equipment Front Wheel Walker,Straight Cane,Shower Seat without Backrest,Hand Held Shower,Grab Bars In Shower Additional Social History Comment Pt states she has a wall on the left side of the toilet she can use for support during transfers. She has an adjustable bed. She lives with her spouse, Juan, who has chronic low back pain and may not be able to provide much physical assist. Pt's sister will stay with her two days when she leaves the hospital and her son will also be able to stay with her a few days when her sister leaves. M2 PT-IP Current Condition Start: 08/04/20 08:39 Freq: NEEDED Status: Active Protocol: Document 08/04/20 10:49 AW (Rec: 08/04/20 12:01 AW [id number]) Physical Therapy Current Condition Current Condition Evaluation Date 08/04/20 Treatment Diagnosis s/p L4-S1 TLIF; impaired mobility and gait Onset Date 08/03/20 Precautions Lumbar Precautions Log Roll,No Twisting,Limit Bending,Lifting Restriction of 10 lbs,Gait Belt above Incisional Area Other Precautions prior CVA - blurred vision, word-finding, memory M3 PT-IP Subjective Start: 08/04/20 08:39 Freq: NEEDED Status: Active Protocol: Document 08/04/20 10:49 AW (Rec: 08/04/20 12:01 AW [id number]) Subjective Physical Therapy Visit Type Type Initial Evaluation Visit Start Time 10:14 Visit Stop Time 10:49 Total Visit Minutes 35 Notes Pt had poor pain control overnight. Was medicated 10 mg oxycodone 40 min prior to evaluation. Co-treated with OT . Number of PLASTIC DUPLICATOR Visits 0 Physical Therapy Visit Comments Patient Comments Just talking hurts. Patient Goals Pt hopes to go home wtih family providing assist. Therapy Pain Assessment Pain When Pain Assessed During Mobility Pain Present Pain Present Pain Reported Location back Intensity 9 Scale Used 8/10 at rest; increased with mobility Pain Management Techniques Apply Cold,Re-positioning, Timing of Activity with Medications M4 PT-IP Mobility and Gait Start: 08/04/20 08:39 Freq: NEEDED Status: Active Protocol: Document 08/04/20 10:49 AW (Rec: 08/04/20 12:01 AW [id number]) PT-Bed Mobility Assessment Rolling Type of Rolling Log Rolling,Roll to Left Level of Assist Minimal Assistance,1 Person Assistance Supine to Sit Supine to Sit Moderate Assistance,1 Person Assistance,Bedrails Scooting Scooting to Edge of Bed Minimal Assistance PT-Transfer Assessment Sit to and From Stand Sit to and from Stand Minimal Assistance,1 Person Assistance,Use of Upper Extremities Equipment Transfer Assistive Device Gait Belt,Front Wheeled Walker Orthotic/Prosthetic Devices or Brace: No Transfers Transfer Destination Chair Transfer Technique Stand Step Pivot Transfer Ability Level of Assist Moderate Assistance,1 Person Assistance,Use of Upper Extremities Comments Mobility Comments Pt was lying in bed with multiple pillows and lumbar ice pack as PT and OT arrived. BP was 98/67 HR 76 SpO2 96% on 2L via NC. She was able to roll to her left side (as she does at home) min A x 1 and then transition from SL to sit mod A x 1. She complained of increased pain in sitting. Pt leaned to her right side but was able to support herself in sitting. BP 101/63. She is 4' 11 but was able to slide forward on the bed to get her feet on the floor and stand min A x 1. Pt also leaned rightward in standing. She transferred with FWW mod A x 1 to the chair set up on her left side. Pt was carefully positioned with multiple pillows behind her and two bolsters set up on the floor so she could stretch her legs out in front of her. She agreed to sit up on the chair. BP 83/43 HR 71 SpO2 96%. Left pt with OT. Gait Assessment Gait Gait Assistance Required: Moderate Assistance,1 Person Assist Distance (Feet) 2 Able to Maintain Weight Bearing Status Yes During Gait Assistive Devices Assistive Device Gait Belt,Front Wheeled Walker Comments Gait Comments Transfer only. See mobility comments. Stair Climbing Assessment Comments Stair Climbing Comments Not assessed. PT-Balance Assessment Sitting Balance and Reactions Static Sitting Balance Ability Good Dynamic Sitting Balance Ability Fair Standing Balance and Reactions Static Standing Balance Ability Fair Dynamic Standing Balance Ability Fair Device Used FWW M5 PT-IP Objective Assessments Start: 08/04/20 08:39 Freq: NEEDED Status: Active Protocol: Document 08/04/20 10:49 AW (Rec: 08/04/20 12:01 AW [id number]) Orientation Orientation/Cognition Level of Alertness Alert Orientation Name,Day of Week,Place, Situation Language Function Ability Word Finding Difficulties Safety Awareness Decreased Safety Awareness Memory Description Short Term Impaired Comments Pt unable to recall back precautions 10 minutes after lengthy discussion. Pt will require frequent reminders and supervision. Gross Range of Motion Lower Extremity ROM Assessment Within Functional Limits Strength Lower Extremity Strength Assessment Bilaterally Impaired Hip 3+/5 Knee 4-/5 Ankle 4-/5 Comments Strength Comments Great toe 3/5 bilaterally Sensation Assessment Sensation Gross Sensation Right LE Impaired,Left LE Impaired Light Touch Impaired Proprioception (Position) Impaired Sensation Description Numbness Comments Sensation Comments Pt reports dull sensation in bilateral MT heads/toes and heels with left more affected than right. Muscle Tone Muscle Tone WNL Yes M6 PT-IP Treatment Start: 08/04/20 08:39 Freq: NEEDED Status: Active Protocol: Document 08/04/20 10:49 AW (Rec: 08/04/20 12:13 AW [id number]) Physical Therapy Treatment Education Education Provided Precautions,Weight Bearing Status,Post-Op Packet,Safety Other Treatments Other Treatment Performed Educated pt on back precautions and functional application and safe use of FWW. M7 PT-IP Assessment and Plan Start: 08/04/20 08:39 Freq: NEEDED Status: Active Protocol: Document 08/04/20 10:49 AW (Rec: 08/04/20 12:13 AW [id number]) PT Summary Assessment and Plan Potential Rehabilitation Potential Fair Status of Condition at Evaluation Evolving Summary Impairments Pain,ROM,Strength,Balance, Sensation,Cognition,Bed Mobility,Transfers,Gait, Activity Tolerance Assessment Summary Sheri is a 75 yo woman seen for PT evaluation on POD1 following L4-S1 TLIF. She has history of CVA with resultant memory impairment, blurred vision, and right sided weakness. At baseline, pt tends to cruise furniture, use a walker occasionally, and her shares housekeeping and cooking responsibilities. Pt required min to mod assist with bed mobility and transfer during evaluation. Pain, hypotension, low activity tolerance were limiting factors. If pt is able to improve her mobility during hospital stay, she may be able to go home with her , sister, and son providing rotating assist. PT will continue to assess and conduct caregiver training when appropriate as pt will require supervision for all mobility since she is unable to recall her precautions. Goals Bed Mobility Goal Standby Assistance Transfer Goal Standby Assistance,Front Wheeled Walker Gait Goal Standby Assistance,Front Wheel Walker Gait Distance 100 Other Goals - up/down platform step x 2 with MEDICAL SPECIALIST or FWW CGA Days to Meet Goals 5 Frequency of Treatment Frequency Of Treatment Twice a Day Treatment Plan Physical Therapy Treatment Plan Bed Mobility Training,Transfer Training,Gait Training, Therapeutic Exercise,Balance Retraining,Post Op Education, Discharge Planning,Hot or Cold Pack,Neuromuscular Re-ed Other Recommendations and Next Treatment gait training with FWW; check Focus BP Precautions Lumbar Precautions Log Roll,No Twisting,Limit Bending,Lifting Restriction of 10 lbs,Gait Belt above Incisional Area Other Precautions prior CVA - blurred vision, word-finding, memory Recommendations To Nursing Amount of Assist Needed 1 Person Assist Discharge Recommendations PT Discharge Recommendations Home with 24/7 Assist Available Transportation Needs at Discharge Private Vehicle
--- NOTE | 2020-08-04 11:04 | OT.IP.EVAL ---
Current Diagnoses Spinal stenosis, lumbar region without neurogenic claudication (08/03/20) Arthrodesis status (08/03/20) Surgery Performed Operation Date: 08/03/20 07:45 Actual Procedures p L4-5 TLIF, L5-S1 lumbar HWR, exploration of fusion,L4-S1 PSF w/instrumentation - Haritha Brewer MD Past Medical History (Last Reviewed 08/04/20 @ 09:01 by Beni Sandoval PA-C) Acid reflux Anxiety Asthma CVA (cerebral vascular accident) Depression Easy bruisability History of ETOH abuse HLD (hyperlipidemia) Memory deficit Pneumonia Rheumatoid arthritis Right homonymous hemianopsia Seizure disorder Spinal stenosis TIA (transient ischemic attack) Visual acuity reduced Surgical History (Last Reviewed 08/04/20 @ 09:01 by Beni Sandoval PA-C) History of arthroplasty of left shoulder History of arthroplasty of right hip History of arthroplasty of right shoulder (03/14/20) History of hysterectomy History of lumbar spinal fusion (2013) Hx of cholecystectomy Hx of craniotomy (05/04/16) Hx of hernia repair Hx of kyphoplasty (~2014) Occupational Therapy Inpatient Evaluation/Re-Eval M1 PT/OT-IP Prior Functional Status Start: 08/04/20 08:39 Freq: NEEDED Status: Active Protocol: Document 08/04/20 10:49 AW (Rec: 08/04/20 12:21 AW [id number]) Medical Review Prior Functional Status Medical History Reviewed Yes Communication Pt has history of CVA with resultant memory impairment. She is able to make needs known. Mobility and Gait Pt states she stays close to furniture at home but typically does not use an AD. She is largely homebound except for doctors appointments. Activities of Daily Living and IADL's Pt states she can dress herself but her helps her don a bra. She showers with a stood and SBA. Her shared cleaning and cooking responsibilities. Pt does not drive. Social History Household Members spouse Living Arrangements House Number of Floors (Floors) One Floor Number of Stairs To Enter/Railing? 1 step to porch and 1 step into house. No railings Home Environment High Toilet,Walk in Shower Home Equipment Front Wheel Walker,Straight Cane,Shower Seat without Backrest,Hand Held Shower,Grab Bars In Shower Additional Social History Comment Pt states she has a wall on the left side of the toilet she can use for support during transfers. She has an adjustable bed. She lives with her spouse, Juan, who has chronic low back pain and may not be able to provide much physical assist. Pt's sister will stay with her two days when she leaves the hospital and her son will also be able to stay with her a few days when her sister leaves. M2 OT-IP Current Condition Start: 08/04/20 13:00 Freq: Status: Active Protocol: Document 08/04/20 10:10 [facility] (Rec: 08/04/20 13:19 [facility] [id number]) Occupational Therapy Current Condition Current Condition Evaluation Date 08/04/20 Treatment Diagnosis s/p L4-5 TLIF , L4-5 PSF , decreased mobility Diagnosis Onset Date 08/03/20 M3 OT- IP Subjective and Pain Start: 08/04/20 13:00 Freq: Status: Active Protocol: Document 08/04/20 10:10 [facility] (Rec: 08/04/20 13:19 [facility] [id number]) OT- Subjective Occupational Therapy Visit Type Type Initial Evaluation Visit Start Time 10:10 Visit Stop Time 11:04 Total Visit Minutes 54 Occupational Therapy Visit Comments Patient Comments Pt agreed to get up, PT also present for OT eval. Patient/Caregiver Goals TO go home. OT Pain Assessment Pain When Pain Assessed During Mobility Pain Present Pain Present Pain Reported Location back Intensity 10 Scale Used Numeric (0 - 10) M4 OT- IP ADL's Start: 08/04/20 13:00 Freq: Status: Active Protocol: Document 08/04/20 10:10 [facility] (Rec: 08/04/20 13:19 [facility] [id number]) OT [id number] Comments OT Self-Feeding Comments Not at meal time. OT ADL-Grooming General Evaluation Grooming Ability Standby Assistance Areas Needing Assistance Retrieving/Set-up of Grooming Items Comments OT Grooming Comments WHile seated in the recliner. OT ADL-Oral Care General Eval Oral Care Ability Independent OT ADL-Dressing General Eval Lower Body Dressing Ability Maximum Assistance Comments OT Dressing Comments At this time due to her back precautions, her family will have to assist with her needs especially for LB dressing. OT ADL-Toileting Comments OT Toileting Comments Not performed. OT ADL-Bathing Comments OT Bathing Comments NOt at this time. M5 OT- IP IADL's Start: 08/04/20 13:00 Freq: Status: Active Protocol: Document 08/04/20 10:10 [facility] (Rec: 08/04/20 13:19 [facility] [id number]) OT-Instrumental Activities of Daily Living Home Safety Awareness Ability to Problem Solve Emergency Unable to Problem Solve Situations Medication Management Medication Management Caregiver Administers Money Management Money Management Caregiver Provides Assistance Meal Preparation Meal Preparation Caregiver Provides Assist Senior Private Client Advisor Senior Private Client Advisor Caregiver Provides Assist Driving Driving Caregiver Provides Assist M6 OT- IP Functional Cognition Start: 08/04/20 13:00 Freq: Status: Active Protocol: Document 08/04/20 10:10 [facility] (Rec: 08/04/20 13:19 [facility] [id number]) Cognitive Factors Limiting Selfcare Function Cognitive Ability Level of Alertness Alert Patient Orientation Name Attention Span Ability Capable of Focused Attention, Capable of Sustained Attention Ability to Follow Commands Able to Follow One Step Commands with Increased Time, Able to Follow One Step Commands with Repetition Memory Description Short Term Impaired Safety Awareness Decreased Recall of Precautions,Decreased Ability to Apply Precautions Cognitive Comments Cognitive Assessment Comments Due to history of CVA , pt states has decreased STM, therefore OT able to make back precaution printed out in large bold letters for her. Went over spinal information with pt , however best for her family to go over the information as well and do caregiver training prior to pt leaving. OT- Vision and Hearing OT- Hearing Assessment OT- Hearing Assessment WFL OT- Vision Assessment Vision History Blurred Vision M7 OT- IP Mobility and Balance Start: 08/04/20 13:00 Freq: Status: Active Protocol: Document 08/04/20 10:10 [facility] (Rec: 08/04/20 13:19 [facility] [id number]) OT- Bed Mobility Assessment Rolling Type of Rolling Roll to Right Level of Assistance Minimal Assistance Supine to Sit Supine to Sit Assist Moderate Assistance,1 Person Assistance OT-Transfer Assessment Sit to and From Stand Sit to and from Stand Minimal Assistance,1 Person Assistance Transfers Transfer Ability Moderate Assistance,1 Person Assistance Technique Transfer Destination Bed,Chair Transfer Technique Stand Step Pivot Devices Transfer Assistive Devices Gait Belt,Front Wheeled Walker Comments Mobility Comments MODA x1 with FWW and another person SBA assist for balance and to help guide the FWW, assist to help ease down to the recliner. In bed with HOB up at 45degrees 98/67, at 15 degrees 94/71, sitting on edge of bed 101/63, and after transfer 83/43 pt not symptomatic just complaining of being tired. Nursing came in to monitor pt and BP back to 97/57 after several minutes . OT- Gait Assessment Comments Gait Ability Comments Transfer only at this time. OT- Balance Assessment Sitting Balance and Reactions Static Sitting Balance Ability Good Dynamic Sitting Balance Ability Fair Standing Balance and Reactions Static Standing Balance Ability Fair M8 OT- IP Objective Assessments Start: 08/04/20 13:00 Freq: Status: Active Protocol: Document 08/04/20 10:10 [facility] (Rec: 08/04/20 13:19 [facility] [id number]) OT Gross Range of Motion Upper Extremity Range of Motion Assessment Right Impaired OT- Coordination Assessment Comments Coordination Comments Arthritic changes in her hands . M9 OT- IP Assessment and Plan Start: 08/04/20 13:00 Freq: Status: Active Protocol: Document 08/04/20 10:10 [facility] (Rec: 08/04/20 13:19 [facility] [id number]) OT Summary Assessment and Plan Potential Rehabilitation Potential Good Analytic Complexity at Evaluation Moderate Summary OT Impairments Pain,Balance,Functional Cognition,Functional Mobility, Grooming,Dressing,Toileting, Bathing,Toilet Transfers, Shower Transfers,Activity Tolerance Progress Towards Goals Slow Progress due to Pain,Slow Progress due to Medical Issues,Slow Progress due to Cognition Assessment Summary Pt MOD complexity due to history of CVA with short term memory deficits, decreased AROM for RUE, blurred vision, and now low BP . Pt now needing one person assist for ADl and functional mobility needs. Pt will benefit from caregiver training to be sure her family is able to appropriately assist her for all her needs. Pending caregiver training, pt to go home with 24/7 assist. Goals Grooming Goal Standby Assistance Dressing Goal Moderate Assistance Toileting Goal Moderate Assistance Bathing Goal Moderate Assistance Toilet Transfer Goal Standby Assistance Shower Transfer Goal Standby Assistance Patient/Caregiver Education Goal Demonstrate Post-Op Precautions,Caregiver Independent Assisting Patient Days to Meet Goals 5 Frequency of Treatment Frequency Of Treatment Once a Day Treatment Plan OT Treatment Plan ADL Training,Functional Cognition Training,Functional Mobility,Patient/Family Education,Discharge Planning Other Treatment Recommendations and Next Back precautions for ADl's Treatment Focus Discharge Recommendations OT Discharge Recommendations Home with 24/7 Assist Available,Home Health Transportation Needs at Discharge Private Vehicle
[2020-08-04] MEDS: DEXAMETHASONE 4 MG/ML VIAL IV ×2 (11:47→17:20)
[2020-08-04] MEDS: predniSONE 5 MG TABLET PO (11:47)
--- NOTE | 2020-08-04 13:45 | CM.IDA ---
Addendum entered by BIANKA Albarran 08/05/20 12:08: Met w/patient and spouse, w/OT Yaz at bedside to review DCP. Patient/spouse remain argumentative. This VEHICLE BODY BUILDER and OT Yaz strongly encourage both to consider what will be the feasible plan upon DC ? Spouse states neither the sister or son have actually been asked to assist. Reviewed options and inevitably, patient/spouse prefer home; therapy team has cleared patient for this plan. Patient is inpatient status and would benefit from additional pain management and therapies and so is planning to DC home w/spouse to assist Saturday08.06.20, patient unsure she will need HH, can review this again w/patient/spouse and Ortho team upon DC HARIS Original Note: Initial DCP Assessment Note Pt is a 75 yo female, resident of [place], now POD#1 from spinal surgery w/ Dr Brewer PCP: Ulises Marina Payer: [facility] Reviewed chart, met w/patient and spouse, introduced role; patient hopeful to return home w/spouse Juan [phone] or [phone]. Patient and spouse argued throughout this visit, spouse suggested SNF upon DC if patient does not improve functionally. Patient has been to [facility] in the past. Patient resistant to this and states she will be able to navigate her home. Patient's cognition waxes and wanes, patient thinks she is in [place] today. According to therapy note- patient has memory impairment d/t prior CVA and will have a difficult time remembering spinal precautions. Therapy team recommending home 15/10 assist from spouse, sister and son, rotating assist. Patient requires additional acute therapy and will not be discharging today. Following closely. BIANKA Albarran Discharge Planning/Care Management CM Discharge Assessment Start: 08/04/20 13:39 Freq: Status: Active Protocol: Document 08/04/20 13:39 [facility]IS (Rec: 08/04/20 13:43 [facility] [id number]) Discharge Planning Assessment Assigned Media Analyst BIANKA Pantoja DPOA/Assigned Designee Name Juan Bravo, spouse Contact Information [phone] Advance Directives? Yes Advance Directives on File No History Provided By Patient,Medical Record Prior Living Arrangements House Household Members spouse Type of transporation used prior to Relies on Others admit Willing to Return to Facility? No Independent with ADL's No Is patient alert and oriented? Yes: Memory loss d/t prior CVA Needs Assistance With Grooming,Meal Prep,Managing Medications,Home Chores / Shopping Patient/Family Preference Home with Home Health Barriers to Discharge Yes Comment Pain management, h/o CVA, memory loss and difficulty retaining information/ following spine precautions. Discharge Plan Home Transportation Arrangement Family Additional Comment None at this time Whiteboard Updated in Patient Room with Yes name and ext. # of Media Analyst
--- NOTE | 2020-08-04 14:01 | PT.IPTN ---
Current Diagnoses Spinal stenosis, lumbar region without neurogenic claudication (08/03/20) Arthrodesis status (08/03/20) Surgery Performed Operation Date: 08/03/20 07:45 Actual Procedures p L4-5 TLIF, L5-S1 lumbar HWR, exploration of fusion,L4-S1 PSF w/instrumentation - Haritha Brewer MD Physical Therapy Treatment Note M2 PT-IP Current Condition Start: 08/04/20 08:39 Freq: NEEDED Status: Active Protocol: Document 08/04/20 10:49 AW (Rec: 08/04/20 12:01 AW [id number]) Physical Therapy Current Condition Current Condition Evaluation Date 08/04/20 Treatment Diagnosis s/p L4-S1 TLIF; impaired mobility and gait Onset Date 08/03/20 Precautions Lumbar Precautions Log Roll,No Twisting,Limit Bending,Lifting Restriction of 10 lbs,Gait Belt above Incisional Area Other Precautions prior CVA - blurred vision, word-finding, memory M3 PT-IP Subjective Start: 08/04/20 08:39 Freq: NEEDED Status: Active Protocol: Document 08/04/20 14:01 AW (Rec: 08/04/20 14:18 AW [id number]) Subjective Physical Therapy Visit Type Type Treatment Note Visit Start Time 13:36 Visit Stop Time 14:01 Total Visit Minutes 25 Notes Pt's spouse was present throughout treatment Number of BOWLING PIN REFINISHER Visits 0 Physical Therapy Visit Comments Patient Comments Pt just got back to bed 20 minutes ago but is willing to get up again with PT. Therapy Pain Assessment Pain When Pain Assessed During Mobility Pain Present Pain Present Pain Reported M4 PT-IP Mobility and Gait Start: 08/04/20 08:39 Freq: NEEDED Status: Active Protocol: Document 08/04/20 14:01 AW (Rec: 08/04/20 14:18 AW [id number]) PT-Bed Mobility Assessment Rolling Type of Rolling Log Rolling,Roll to Left Level of Assist Contact Guard Assistance Supine to Sit Supine to Sit Minimal Assistance,1 Person Assistance Scooting Scooting to Edge of Bed Contact Guard Assistance PT-Transfer Assessment Sit to and From Stand Sit to and from Stand Contact Guard Assistance,1 Person Assistance,Use of Upper Extremities Equipment Transfer Assistive Device Gait Belt,Front Wheeled Walker Orthotic/Prosthetic Devices or Brace: No Transfers Transfer Destination Chair Transfer Technique Stand Step Pivot Transfer Ability Level of Assist Minimal Assistance,1 Person Assistance,Use of Upper Extremities Comments Mobility Comments Pt was reclined in bed as PT arrived. BP 96/49 HR 65. She rolled to her left side CGA and completed SL to sit min assist. She stood from the bed in lowest position CGA with flexed posture and shoulders elevated. She was able to retract her scapulae in response to cues but remained relatively flexed as she ambulated around the room a total of 30 feet with FWW CGA. She fatigued quickly and requested to sit. BP was 117/ 61 HR 66. Pt refused further mobility, agreeing to sit up on the chair. Gait Assessment Gait Gait Assistance Required: Contact Guard Assist,1 Person Assist Distance (Feet) 30 Able to Maintain Weight Bearing Status Yes During Gait Assistive Devices Assistive Device Gait Belt,Front Wheeled Walker Gait Deviations General Gait Pattern Antalgic,Decreased Stride Length,Decreased Feet Clearance,Flexed Trunk Factors Limiting Gait Function Factors Limiting Gait Function Decreased Activity Tolerance, Decreased Sensation,Decreased Strength,Limited Range of Motion,Pain Comments Gait Comments Pt fatigued quickly but was able to ambulate around the room with FWW CGA. Thoracic posture was significantly flexed and pt complained of pain in right buttocks during gait. Stair Climbing Assessment Comments Stair Climbing Comments Not assessed. PT-Balance Assessment Sitting Balance and Reactions Static Sitting Balance Ability Good Dynamic Sitting Balance Ability Good Standing Balance and Reactions Static Standing Balance Ability Fair Dynamic Standing Balance Ability Fair Device Used FWW M5 PT-IP Objective Assessments Start: 08/04/20 08:39 Freq: NEEDED Status: Active Protocol: Document 08/04/20 10:49 AW (Rec: 08/04/20 12:01 AW [id number]) Orientation Orientation/Cognition Level of Alertness Alert Orientation Name,Day of Week,Place, Situation Language Function Ability Word Finding Difficulties Safety Awareness Decreased Safety Awareness Memory Description Short Term Impaired Comments Pt unable to recall back precautions 10 minutes after lengthy discussion. Pt will require frequent reminders and supervision. Gross Range of Motion Lower Extremity ROM Assessment Within Functional Limits Strength Lower Extremity Strength Assessment Bilaterally Impaired Hip 3+/5 Knee 4-/5 Ankle 4-/5 Comments Strength Comments Great toe 3/5 bilaterally Sensation Assessment Sensation Gross Sensation Right LE Impaired,Left LE Impaired Light Touch Impaired Proprioception (Position) Impaired Sensation Description Numbness Comments Sensation Comments Pt reports dull sensation in bilateral MT heads/toes and heels with left more affected than right. Muscle Tone Muscle Tone WNL Yes M6 PT-IP Treatment Start: 08/04/20 08:39 Freq: NEEDED Status: Active Protocol: Document 08/04/20 14:01 AW (Rec: 08/04/20 14:18 AW [id number]) Physical Therapy Treatment Education Education Provided Precautions,Safety Other Treatments Other Treatment Performed Reviewed precautions with pt's spouse who will be primary caregiver at home. M7 PT-IP Assessment and Plan Start: 08/04/20 08:39 Freq: NEEDED Status: Active Protocol: Document 08/04/20 14:01 AW (Rec: 08/04/20 14:18 AW [id number]) PT Summary Assessment and Plan Summary Impairments Pain,ROM,Strength,Balance, Sensation,Cognition,Bed Mobility,Transfers,Gait, Activity Tolerance Progress Towards Goals Slow Progress due to Pain,Slow Progress due to Activity Tolerance Assessment Summary hSeri improved her mobility this PM and was able to ambulate around the room with FWW CGA. Her spouse was present, using FWW for mobility. He agreed to be present at 11:00 Saturday for continued training. Pt would benefit from home health to improve her mobility independence in the home. Goals Bed Mobility Goal Standby Assistance Transfer Goal Standby Assistance,Front Wheeled Walker Gait Goal Standby Assistance,Front Wheel Walker Gait Distance 100 Other Goals - up/down platform step x 2 with REEL REPAIRER or FWW CGA Days to Meet Goals 5 Frequency of Treatment Frequency Of Treatment Twice a Day Treatment Plan Physical Therapy Treatment Plan Bed Mobility Training,Transfer Training,Gait Training, Therapeutic Exercise,Balance Retraining,Post Op Education, Discharge Planning,Hot or Cold Pack,Neuromuscular Re-ed Other Recommendations and Next Treatment gait training with FWW; check Focus BP; caregiver training 1100 Saturday Precautions Lumbar Precautions Log Roll,No Twisting,Limit Bending,Lifting Restriction of 10 lbs,Gait Belt above Incisional Area Other Precautions prior CVA - blurred vision, word-finding, memory Recommendations To Nursing Amount of Assist Needed 1 Person Assist Discharge Recommendations PT Discharge Recommendations Home with 24/ Assist Available,Home Health Transportation Needs at Discharge Private Vehicle
[2020-08-04] MEDS: TRAZODONE 50 MG TABLET 100 MG PO (20:50)
[2020-08-04] MEDS: SENNOSIDES 8.6 MG TABLET 17.2 MG PO (20:50)
[2020-08-04] MEDS: ATORVASTATIN 20 MG TABLET 40 MG PO (20:50)
[2020-08-04] MEDS: SODIUM CHLORIDE 0.9% FLUSH 10 ML IV (22:24)
[2020-08-05] VITALS (11 sets, daily range): BP systolic 121–157; BP diastolic 65–79; PULSE 51–81; RESP 15–18; TEMP 36.3–37.2; O2SAT 94–98
[2020-08-05] MEDS: DEXAMETHASONE 4 MG/ML VIAL IV ×5 (00:18→23:55)
[2020-08-05] MEDS: OXYCODONE IR 10 MG TABLET PO ×7 (00:22→23:59)
--- NOTE | 2020-08-05 07:36 | PM.PNPO.1 ---
Subjective Subjective Date Patient Seen: 08/05/20 Time Patient Seen: 07:36 Interval history: Patient states she is doing well overall and feels her pain level has decreased significantly since yesterday. At this time the patient denies fever, chills, nausea, chest pain, shortness of breath, or urinary retention. Patient reports good sensation throughout the bilateral lower extremities. She explains she has yet to work with physical therapy. Exam Vital Signs (past 8 hours): - 08/05/20 00:00 08/05/20 05:54 Temperature 97.3 F L 97.5 F L Pulse Rate 58 L 57 L Respiratory Rate 18 18 Blood Pressure 129/67 137/75 Pulse Oximetry 96 98 Oxygen Delivery Method Nasal Cannula Oxygen Flow Rate 1 Narrative Exam Narrative: Pleasant 75-year-old female postop day 2. Patient is resting comfortably in bed, is in no acute distress, is alert and oriented x3. Skin is warm dry, and the skin surrounding the incision site is free of erythema, warmth, induration, or discharge. Good sensation appreciated throughout the bilateral lower extremities to light touch. Ankle dorsiflexion, plantar flexion, eversion, inversion performed bilaterally without difficulty or discomfort. Hip flexion performed bilaterally. Calves are soft nontender, negative Homans sign. Palpable pulses appreciated, capillary refill less than 2 seconds. No other signs of DVT appreciated at this time. Const General: cooperative, healthy appearing and comfortable Resp Effort & Inspection: normal respiratory effort and able to speak in complete sentences Skin General: no rashes or lesions noted [facility] Medical History Acid reflux Anxiety Asthma CVA (cerebral vascular accident) Depression Easy bruisability History of ETOH abuse HLD (hyperlipidemia) Memory deficit Pneumonia Rheumatoid arthritis Right homonymous hemianopsia Seizure disorder Spinal stenosis TIA (transient ischemic attack) Visual acuity reduced Surgical History History of arthroplasty of left shoulder History of arthroplasty of right hip History of arthroplasty of right shoulder (03/14/20) History of hysterectomy History of lumbar spinal fusion (2013) Hx of cholecystectomy Hx of craniotomy (05/04/16) Hx of hernia repair Hx of kyphoplasty (~2014) Social History household members: spouse Smoking Status: Never smoker alcohol intake: former Assessment & Plan Post-op Postoperative Procedures: Procedures Operation Date: 08/03/20 07:45 Actual Procedures Side Surgeon p L4-5 TLIF, L5-S1 lumbar HWR, exploration of fusion,L4-S1 PSF w/instrumentation Haritha Brewer MD Postoperative day: 2 Postoperative status: doing well Postoperative plan: ambulate Postoperative plan narrative: Patient is to continue working with PT on ambulation with the assistance of a front wheeled walker. Plan to have catheter removed following 1st visit with physical therapy this morning. Current pain management regimen is to be continued as it is adequately controlling the patient's pain level at this time. Pending successful work with PT discharge is likely planned for either today or tomorrow. Time Spent With Patient Time with patient: 15-24 minutes Quality VTE Deep Vein Thrombosis/Pulmonary Embolism Present on Admission: No
[2020-08-05] MEDS: MONTELUKAST 10 MG TABLET PO (09:34)
[2020-08-05] MEDS: PREGABALIN 75 MG CAPSULE 150 MG PO ×2 (09:34→20:50)
[2020-08-05] MEDS: MEMANTINE HCL 5 MG TABLET PO (09:34)
[2020-08-05] MEDS: SERTRALINE 50 MG TABLET 75 MG PO (09:34)
[2020-08-05] MEDS: DOCUSATE 100 MG CAPSULE PO ×2 (09:34→20:50)
[2020-08-05] MEDS: BUSPIRONE 5 MG TABLET 10 MG PO ×3 (09:34→20:49)
[2020-08-05] MEDS: levETIRAcetam 250 MG TABLET 1000 MG PO ×2 (09:35→20:50)
[2020-08-05] MEDS: FAMOTIDINE 20 MG TABLET 40 MG PO (09:36)
[2020-08-05] MEDS: DONEPEZIL 5 MG TABLET PO ×2 (09:36→20:50)
[2020-08-05] MEDS: LORATADINE 10 MG TABLET PO (09:36)
[2020-08-05] MEDS: predniSONE 5 MG TABLET PO (09:36)
[2020-08-05] MEDS: SODIUM CHLORIDE 0.9% FLUSH 10 ML IV ×2 (09:37→20:51)
--- NOTE | 2020-08-05 11:08 | PC.NURSE ---
Patient given 10mg of po oxycodone as she requested earlier. Her dressing to lower back is cdi. 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 She is alert and oriented x3. Waiting to work with physical therapy now and visiting with her . Patient denies any numbness or tingling in her lower bilateral extremities.
--- NOTE | 2020-08-05 11:34 | PT.IPTN ---
Current Diagnoses Spinal stenosis, lumbar region without neurogenic claudication (08/03/20) Arthrodesis status (08/03/20) Surgery Performed Operation Date: 08/03/20 07:45 Actual Procedures p L4-5 TLIF, L5-S1 lumbar HWR, exploration of fusion,L4-S1 PSF w/instrumentation - Haritha Brewer MD Physical Therapy Treatment Note M2 PT-IP Current Condition Start: 08/04/20 08:39 Freq: NEEDED Status: Active Protocol: Document 08/04/20 10:49 AW (Rec: 08/04/20 12:01 AW [id number]) Physical Therapy Current Condition Current Condition Evaluation Date 08/04/20 Treatment Diagnosis s/p L4-S1 TLIF; impaired mobility and gait Onset Date 08/03/20 Precautions Lumbar Precautions Log Roll,No Twisting,Limit Bending,Lifting Restriction of 10 lbs,Gait Belt above Incisional Area Other Precautions prior CVA - blurred vision, word-finding, memory M3 PT-IP Subjective Start: 08/04/20 08:39 Freq: NEEDED Status: Active Protocol: Document 08/05/20 11:04 CLB (Rec: 08/05/20 12:42 CLB [id number]) Subjective Physical Therapy Visit Type Type Treatment Note Visit Start Time 11:04 Visit Stop Time 11:34 Total Visit Minutes 30 Notes Pt's spouse was present throughout treatment for CG training Physical Therapy Visit Comments Patient Comments Pt willing to work with therapy. Therapy Pain Assessment Pain When Pain Assessed During Mobility Pain Present Pain Present Pain Reported Location back Intensity 5 Pain Management Techniques Modification of Treatment,Re- positioning,Timing of Activity with Medications M4 PT-IP Mobility and Gait Start: 08/04/20 08:39 Freq: NEEDED Status: Active Protocol: Document 08/05/20 11:04 CLB (Rec: 08/05/20 12:42 CLB [id number]) PT-Bed Mobility Assessment Rolling Type of Rolling Log Rolling,Roll to Left Level of Assist Standby Assistance,Contact Guard Assistance Supine to Sit Supine to Sit Standby Assistance Sit to Supine Sit to Supine Standby Assistance Scooting Scooting to Edge of Bed Standby Assistance PT-Transfer Assessment Sit to and From Stand Sit to and from Stand Standby Assistance,1 Person Assistance,Use of Upper Extremities Equipment Transfer Assistive Device Gait Belt,Front Wheeled Walker Orthotic/Prosthetic Devices or Brace: No Transfers Transfer Destination Bed Transfer Technique Stand Step Pivot Transfer Ability Level of Assist Standby Assistance,1 Person Assistance,Use of Upper Extremities Comments Mobility Comments Pt able to perform all bed mobility SBA with cues for alignment during LR. Pt stood SBA from bed and ambulated to platform step in room. Pt able to provide CGA for stepping up onto platform step and down as well. Pt then ambulated in conner ~400ft w/ FWW/SBA with cues for posture and relaxing shoulder. Pt returned to room sitting on EOB, sidelying and reverse LR SBA. Educated pt on getting in truck on stool, pt refused practise getting up on bed with stool to simulate getting into truck. Pt left in bed with all needs within reach and alarm on, present. Gait Assessment Gait Gait Assistance Required: Standby Assistance,1 Person Assist Distance (Feet) 400 Able to Maintain Weight Bearing Status Yes During Gait Assistive Devices Assistive Device Gait Belt,Front Wheeled Walker Gait Deviations General Gait Pattern Antalgic,Decreased Stride Length,Decreased Feet Clearance,Flexed Trunk Factors Limiting Gait Function Factors Limiting Gait Function Decreased Activity Tolerance, Decreased Sensation,Decreased Strength,Limited Range of Motion,Pain Comments Gait Comments See mobility comments. Stair Climbing Assessment Evaluation Level of Assist On Stairs Contact Guard Assistance Devices Stair Climbing Assistive Devices Front Wheel Walker Technique/Endurance Stair Climbing Direction Ascend and Descend Stair Climbing Technique Step to Step Number of Steps Climbed 1 Stair Climbing Set # Repetitions (reps) 2 Comments Stair Climbing Comments Pt able to assist with CGA on platform step. PT-Balance Assessment Sitting Balance and Reactions Static Sitting Balance Ability Good Dynamic Sitting Balance Ability Good Standing Balance and Reactions Static Standing Balance Ability Fair Dynamic Standing Balance Ability Fair Device Used FWW M5 PT-IP Objective Assessments Start: 08/04/20 08:39 Freq: NEEDED Status: Active Protocol: Document 08/04/20 10:49 AW (Rec: 08/04/20 12:01 AW [id number]) Orientation Orientation/Cognition Level of Alertness Alert Orientation Name,Day of Week,Place, Situation Language Function Ability Word Finding Difficulties Safety Awareness Decreased Safety Awareness Memory Description Short Term Impaired Comments Pt unable to recall back precautions 10 minutes after lengthy discussion. Pt will require frequent reminders and supervision. Gross Range of Motion Lower Extremity ROM Assessment Within Functional Limits Strength Lower Extremity Strength Assessment Bilaterally Impaired Hip 3+/5 Knee 4-/5 Ankle 4-/5 Comments Strength Comments Great toe 3/5 bilaterally Sensation Assessment Sensation Gross Sensation Right LE Impaired,Left LE Impaired Light Touch Impaired Proprioception (Position) Impaired Sensation Description Numbness Comments Sensation Comments Pt reports dull sensation in bilateral MT heads/toes and heels with left more affected than right. Muscle Tone Muscle Tone WNL Yes M6 PT-IP Treatment Start: 08/04/20 08:39 Freq: NEEDED Status: Active Protocol: Document 08/04/20 14:01 AW (Rec: 08/04/20 14:18 AW [id number]) Physical Therapy Treatment Education Education Provided Precautions,Safety Other Treatments Other Treatment Performed Reviewed precautions with pt's spouse who will be primary caregiver at home. M7 PT-IP Assessment and Plan Start: 08/04/20 08:39 Freq: NEEDED Status: Active Protocol: Document 08/05/20 11:04 CLB (Rec: 08/05/20 12:42 CLB [id number]) PT Summary Assessment and Plan Summary Impairments Pain,ROM,Strength,Balance, Sensation,Cognition,Bed Mobility,Transfers,Gait, Activity Tolerance Progress Towards Goals Progressing Toward Goals Assessment Summary Pt able to perform all bed mobility SBA with cues for proper alignment during LR. Pt recalls 2/3 back precaution. Pt able to climb platform step with providing CGA. Pt states her sister will come to assist her at home as her has LBP. Pt's states the sister is of no help and won't be coming. Pt would benefit from HH PT. Goals Bed Mobility Goal Standby Assistance Transfer Goal Standby Assistance,Front Wheeled Walker Gait Goal Standby Assistance,Front Wheel Walker Gait Distance 100 Other Goals - up/down platform step x 2 with MILITARY COMMUNICATIONS SPECIALIST or FWW CGA Days to Meet Goals 5 Frequency of Treatment Frequency Of Treatment Twice a Day Treatment Plan Physical Therapy Treatment Plan Bed Mobility Training,Transfer Training,Gait Training, Therapeutic Exercise,Balance Retraining,Post Op Education, Discharge Planning,Hot or Cold Pack,Neuromuscular Re-ed Other Recommendations and Next Treatment bed mobility, gait Focus Precautions Lumbar Precautions Log Roll,No Twisting,Limit Bending,Lifting Restriction of 10 lbs,Gait Belt above Incisional Area Other Precautions prior CVA - blurred vision, word-finding, memory Recommendations To Nursing Amount of Assist Needed 1 Person Assist Discharge Recommendations PT Discharge Recommendations Home with 24/ Assist Available,Home Health Transportation Needs at Discharge Private Vehicle
--- NOTE | 2020-08-05 11:34 | OT.IP.TRT ---
Current Diagnoses Spinal stenosis, lumbar region without neurogenic claudication (08/03/20) Arthrodesis status (08/03/20) Surgery Performed Operation Date: 08/03/20 07:45 Actual Procedures p L4-5 TLIF, L5-S1 lumbar HWR, exploration of fusion,L4-S1 PSF w/instrumentation - Haritha Brewer MD Occupational Therapy Treatment Note M2 OT-IP Current Condition Start: 08/04/20 13:00 Freq: Status: Active Protocol: Document 08/04/20 10:10 [facility] (Rec: 08/04/20 13:19 [facility] [id number]) Occupational Therapy Current Condition Current Condition Evaluation Date 08/04/20 Treatment Diagnosis s/p L4-5 TLIF , L4-5 PSF , decreased mobility Diagnosis Onset Date 08/03/20 M3 OT- IP Subjective and Pain Start: 08/04/20 13:00 Freq: Status: Active Protocol: Document 08/05/20 12:28 [facility] (Rec: 08/05/20 12:42 [facility] [id number]) OT- Subjective Occupational Therapy Visit Type Type Treatment Note Visit Start Time 11:37 Visit Stop Time 12:16 Total Visit Minutes 29 Notes Pt seen for split treatment. Occupational Therapy Visit Comments Patient Comments Pt apprehensive of going home today and not sure whether her is capable of taking care of her. Case management also present for part of the conversation. Patient/Caregiver Goals To go home. M4 OT- IP ADL's Start: 08/04/20 13:00 Freq: Status: Active Protocol: Document 08/04/20 10:10 [facility] (Rec: 08/04/20 13:19 [facility] [id number]) OT [id number] Comments OT Self-Feeding Comments Not at meal time. OT ADL-Grooming General Evaluation Grooming Ability Standby Assistance Areas Needing Assistance Retrieving/Set-up of Grooming Items Comments OT Grooming Comments WHile seated in the recliner. OT ADL-Oral Care General Eval Oral Care Ability Independent OT ADL-Dressing General Eval Lower Body Dressing Ability Maximum Assistance Comments OT Dressing Comments At this time due to her back precautions, her family will have to assist with her needs especially for LB dressing. OT ADL-Toileting Comments OT Toileting Comments Not performed. OT ADL-Bathing Comments OT Bathing Comments NOt at this time. M5 OT- IP IADL's Start: 08/04/20 13:00 Freq: Status: Active Protocol: Document 08/04/20 10:10 [facility] (Rec: 08/04/20 13:19 [facility] [id number]) OT-Instrumental Activities of Daily Living Home Safety Awareness Ability to Problem Solve Emergency Unable to Problem Solve Situations Medication Management Medication Management Caregiver Administers Money Management Money Management Caregiver Provides Assistance Meal Preparation Meal Preparation Caregiver Provides Assist Bath House Attendant Bath House Attendant Caregiver Provides Assist Driving Driving Caregiver Provides Assist M6 OT- IP Functional Cognition Start: 08/04/20 13:00 Freq: Status: Active Protocol: Document 08/05/20 12:28 [facility] (Rec: 08/05/20 12:42 [facility] [id number]) Cognitive Factors Limiting Selfcare Function Cognitive Ability Level of Alertness Alert,Confusional State Patient Orientation Name Attention Span Ability Capable of Focused Attention, Capable of Sustained Attention Ability to Follow Commands Able to Follow One Step Commands with Increased Time, Able to Follow One Step Commands with Repetition Memory Description Short Term Impaired Safety Awareness Decreased Recall of Precautions,Decreased Ability to Apply Precautions Cognitive Comments Cognitive Assessment Comments Pt continues to have difficulty stating her back precautions and when getting frustrated having more difficulty. Pt expressed to therapist and case filler that she does not feel comfortable to go home today and would rather stay another day to do more caregiver training. Both pt and would benefit from more caregiver training and having difficulty to communicate with each other. Pt insists her sister is coming to assist her , however states she has never been by to assist her in the past. M8 OT- IP Objective Assessments Start: 08/04/20 13:00 Freq: Status: Active Protocol: Document 08/04/20 10:10 [facility] (Rec: 08/04/20 13:19 [facility] [id number]) OT Gross Range of Motion Upper Extremity Range of Motion Assessment Right Impaired OT- Coordination Assessment Comments Coordination Comments Arthritic changes in her hands . M9 OT- IP Assessment and Plan Start: 08/04/20 13:00 Freq: Status: Active Protocol: Document 08/05/20 12:28 [facility] (Rec: 08/05/20 12:42 [facility] [id number]) OT Summary Assessment and Plan Potential Rehabilitation Potential Good Analytic Complexity at Evaluation Moderate Summary OT Impairments Pain,Balance,Functional Cognition,Functional Mobility, Grooming,Dressing,Toileting, Bathing,Toilet Transfers, Shower Transfers,Activity Tolerance Progress Towards Goals Slow Progress due to Pain,Slow Progress due to Cognition Assessment Summary Pt would benefit from caregiver training with her for shower needs and how pt's best able to assist her for all ADl and functional mobility needs. OT to work with pt and at 10AM 08/06/20. Pt would benefit from home health and bath aid, but pt not wanting any home health at this time. Goals Grooming Goal Standby Assistance Dressing Goal Minimal Assistance Toileting Goal Minimal Assistance Bathing Goal Moderate Assistance Toilet Transfer Goal Standby Assistance Shower Transfer Goal Standby Assistance Patient/Caregiver Education Goal Demonstrate Post-Op Precautions,Caregiver Independent Assisting Patient Days to Meet Goals 4 Frequency of Treatment Frequency Of Treatment Once a Day Treatment Plan OT Treatment Plan ADL Training,Functional Cognition Training,Functional Mobility,Patient/Family Education,Discharge Planning Other Treatment Recommendations and Next 08/06 at 10AM Caregiver Treatment Focus training for shower. Discharge Recommendations OT Discharge Recommendations Home with 15/10 Assist Available,Home Health Transportation Needs at Discharge Private Vehicle
--- NOTE | 2020-08-05 13:20 | PT.IPTN ---
Current Diagnoses Spinal stenosis, lumbar region without neurogenic claudication (08/03/20) Arthrodesis status (08/03/20) Surgery Performed Operation Date: 08/03/20 07:45 Actual Procedures p L4-5 TLIF, L5-S1 lumbar HWR, exploration of fusion,L4-S1 PSF w/instrumentation - Haritha Brewer MD Physical Therapy Treatment Note M2 PT-IP Current Condition Start: 08/04/20 08:39 Freq: NEEDED Status: Active Protocol: Document 08/04/20 10:49 AW (Rec: 08/04/20 12:01 AW [id number]) Physical Therapy Current Condition Current Condition Evaluation Date 08/04/20 Treatment Diagnosis s/p L4-S1 TLIF; impaired mobility and gait Onset Date 08/03/20 Precautions Lumbar Precautions Log Roll,No Twisting,Limit Bending,Lifting Restriction of 10 lbs,Gait Belt above Incisional Area Other Precautions prior CVA - blurred vision, word-finding, memory M3 PT-IP Subjective Start: 08/04/20 08:39 Freq: NEEDED Status: Active Protocol: Document 08/05/20 13:20 AB (Rec: 08/05/20 13:56 AB [id number]) Subjective Physical Therapy Visit Type Type Treatment Note Visit Start Time 13:20 Visit Stop Time 13:50 Total Visit Minutes 30 Number of X RAY NURSE Visits 0 Physical Therapy Visit Comments Patient Comments pt is agreeable to do PT Therapy Pain Assessment Pain When Pain Assessed At Rest Pain Present Pain Present Pain Reported Location back Intensity 3 Scale Used Numeric (0 - 10) Pain Management Techniques Distraction,Modification of Treatment,Re-positioning, Timing of Activity with Medications M4 PT-IP Mobility and Gait Start: 08/04/20 08:39 Freq: NEEDED Status: Active Protocol: Document 08/05/20 13:20 AB (Rec: 08/05/20 13:56 AB [id number]) PT-Bed Mobility Assessment Rolling Level of Assist Standby Assistance Supine to Sit Supine to Sit Standby Assistance,Bedrails Sit to Supine Sit to Supine Standby Assistance,Bedrails PT-Transfer Assessment Sit to and From Stand Sit to and from Stand Standby Assistance,Use of Upper Extremities Equipment Transfer Assistive Device Front Wheeled Walker Orthotic/Prosthetic Devices or Brace: No Comments Mobility Comments pt completed supine <>sit x 2 sets and cues for techniques. Spouse in room. reviewed use of safety belt on pt and spouse was able to counter demonstrate. pt completed sit to stand SBA and ambulated in the hallway SBA > 400 ft using FWW. pt can be impulsive. No LOB. pt requested to go back in bed after ambulation. completed sit to supine SBA. positioned in bed. call light and table placed within reach. Gait Assessment Gait Gait Assistance Required: Standby Assistance Distance (Feet) 400 Able to Maintain Weight Bearing Status Yes During Gait Assistive Devices Assistive Device Gait Belt,Front Wheeled Walker Orthotic/Prosthetic Devices or Brace: No Gait Deviations General Gait Pattern Decreased Stride Length, Decreased Feet Clearance Factors Limiting Gait Function Factors Limiting Gait Function Decreased Activity Tolerance, Decreased Strength,Limited Range of Motion,Pain,Poor Balance,Poor Safety Awareness M5 PT-IP Objective Assessments Start: 08/04/20 08:39 Freq: NEEDED Status: Active Protocol: Document 08/04/20 10:49 AW (Rec: 08/04/20 12:01 AW [id number]) Orientation Orientation/Cognition Level of Alertness Alert Orientation Name,Day of Week,Place, Situation Language Function Ability Word Finding Difficulties Safety Awareness Decreased Safety Awareness Memory Description Short Term Impaired Comments Pt unable to recall back precautions 10 minutes after lengthy discussion. Pt will require frequent reminders and supervision. Gross Range of Motion Lower Extremity ROM Assessment Within Functional Limits Strength Lower Extremity Strength Assessment Bilaterally Impaired Hip 3+/5 Knee 4-/5 Ankle 4-/5 Comments Strength Comments Great toe 3/5 bilaterally Sensation Assessment Sensation Gross Sensation Right LE Impaired,Left LE Impaired Light Touch Impaired Proprioception (Position) Impaired Sensation Description Numbness Comments Sensation Comments Pt reports dull sensation in bilateral MT heads/toes and heels with left more affected than right. Muscle Tone Muscle Tone WNL Yes M6 PT-IP Treatment Start: 08/04/20 08:39 Freq: NEEDED Status: Active Protocol: Document 08/05/20 13:20 AB (Rec: 08/05/20 13:56 AB [email or web address]) Physical Therapy Treatment Education Education Provided Safety M7 PT-IP Assessment and Plan Start: 08/04/20 08:39 Freq: NEEDED Status: Active Protocol: Document 08/05/20 13:20 AB (Rec: 08/05/20 13:56 AB [email or web address]) PT Summary Assessment and Plan Potential Rehabilitation Potential Good Summary Impairments Pain,ROM,Strength,Balance, Coordination,Cognition,Bed Mobility,Transfers,Gait, Activity Tolerance Progress Towards Goals Progressing Toward Goals Assessment Summary pt requiring SBA with mobility using FWW and plans to go home with spouse to assist as needed. pt may go home when medically stable. Goals Bed Mobility Goal Standby Assistance Transfer Goal Standby Assistance,Front Wheeled Walker Gait Goal Standby Assistance,Front Wheel Walker Gait Distance 100 Other Goals - up/down platform step x 2 with COFFEE ROASTER or FWW CGA Days to Meet Goals 5 Frequency of Treatment Frequency Of Treatment Twice a Day Treatment Plan Physical Therapy Treatment Plan Bed Mobility Training,Transfer Training,Gait Training, Therapeutic Exercise,Balance Retraining,Post Op Education, Discharge Planning,Hot or Cold Pack,Neuromuscular Re-ed Precautions Lumbar Precautions Log Roll,No Twisting,Limit Bending,Lifting Restriction of 10 lbs,Gait Belt above Incisional Area Recommendations To Nursing Amount of Assist Needed 1 Person Assist Discharge Recommendations PT Discharge Recommendations Home with 15/10 Assist Available,Home Health Transportation Needs at Discharge Private Vehicle
[2020-08-05] MEDS: ATORVASTATIN 20 MG TABLET 40 MG PO (20:49)
[2020-08-05] MEDS: SENNOSIDES 8.6 MG TABLET 17.2 MG PO (20:50)
[2020-08-05] MEDS: hydrOXYzine pamoate 25 MG CAPSULE PO (20:50)
[2020-08-05] MEDS: TRAZODONE 50 MG TABLET 100 MG PO (20:50)
[2020-08-06] MEDS: OXYCODONE IR 10 MG TABLET PO ×3 (04:38→11:50)
[2020-08-06 05:19] VITALS: BP 151/73; PULSE 65; RESP 16; TEMP 36.2; O2SAT 92
[2020-08-06] MEDS: DEXAMETHASONE 4 MG/ML VIAL IV ×2 (05:48→11:50)
[2020-08-06] MEDS: hydrOXYzine pamoate 25 MG CAPSULE PO (05:57)
[2020-08-06 07:50] VITALS: BP 138/76; PULSE 59; RESP 18; TEMP 37.1; O2SAT 96
[2020-08-06] MEDS: DONEPEZIL 5 MG TABLET PO (08:20)
[2020-08-06] MEDS: LORATADINE 10 MG TABLET PO (08:20)
[2020-08-06] MEDS: SERTRALINE 50 MG TABLET 75 MG PO (08:20)
[2020-08-06] MEDS: FAMOTIDINE 20 MG TABLET 40 MG PO (08:20)
[2020-08-06] MEDS: predniSONE 5 MG TABLET PO (08:20)
[2020-08-06] MEDS: DOCUSATE 100 MG CAPSULE PO (08:20)
[2020-08-06] MEDS: BUSPIRONE 5 MG TABLET 10 MG PO (08:21)
[2020-08-06] MEDS: MEMANTINE HCL 5 MG TABLET PO (08:21)
[2020-08-06] MEDS: MONTELUKAST 10 MG TABLET PO (08:21)
[2020-08-06] MEDS: levETIRAcetam 250 MG TABLET 1000 MG PO (08:21)
--- NOTE | 2020-08-06 08:26 | PM.PNPO.1 ---
Subjective Subjective Date Patient Seen: 08/06/20 Time Patient Seen: 08:26 Interval history: Patient states she is doing well overall and feels that her condition has improved significantly since yesterday. At this time the patient denies fever, chills, nausea, chest pain, shortness of breath, or urinary retention. Patient reports good sensation throughout the bilateral lower extremities. She explains that she is looking forward to being discharged today after working with physical therapy. Exam Vital Signs (past 8 hours): - 08/06/20 05:19 Temperature 97.2 F L Pulse Rate 65 Respiratory Rate 16 Blood Pressure 151/73 H Pulse Oximetry 92 Oxygen Delivery Method Room Air Oxygen Flow Rate 0 Narrative Exam Narrative: Pleasant 75-year-old female postop day 3. Patient in comfortably in bed, is in no acute distress, is alert and oriented x3. Skin is warm and dry, and the skin surrounding the incision site is free of erythema, warmth, induration, or discharge. Dressing over the incision site is clean and dry free of strike through. Good sensation appreciated throughout the bilateral lower extremities to light touch. Ankle dorsiflexion, plantar flexion, eversion, inversion performed bilaterally without difficulty or discomfort. Calves are soft nontender, negative Homans sign. Palpable pulses appreciated, capillary refill less than 2 seconds. No other signs of DVT appreciated at this time. Const General: cooperative, healthy appearing and comfortable Resp Effort & Inspection: normal respiratory effort and able to speak in complete sentences Skin General: no rashes or lesions noted [facility] Medical History Acid reflux Anxiety Asthma CVA (cerebral vascular accident) Depression Easy bruisability History of ETOH abuse HLD (hyperlipidemia) Memory deficit Pneumonia Rheumatoid arthritis Right homonymous hemianopsia Seizure disorder Spinal stenosis TIA (transient ischemic attack) Visual acuity reduced Surgical History History of arthroplasty of left shoulder History of arthroplasty of right hip History of arthroplasty of right shoulder (03/14/20) History of hysterectomy History of lumbar spinal fusion (2013) Hx of cholecystectomy Hx of craniotomy (05/04/16) Hx of hernia repair Hx of kyphoplasty (~2014) Social History household members: spouse Smoking Status: Never smoker alcohol intake: former Assessment & Plan Post-op Postoperative Procedures: Procedures Operation Date: 08/03/20 07:45 Actual Procedures Side Surgeon p L4-5 TLIF, L5-S1 lumbar HWR, exploration of fusion,L4-S1 PSF w/instrumentation Haritha Brewer MD Postoperative day: 3 Postoperative status: doing well Postoperative plan: ambulate Postoperative plan narrative: Patient is to continue working on ambulation with the assistance of a front wheel walker with physical therapy. Current pain management regimen is to be continued as it is adequately controlling the patient's pain level at this time. Patient is to refrain from bending, twisting, or lifting in excess of 10 lb. Plan for discharge likely home today following successful work with PT. Quality VTE Deep Vein Thrombosis/Pulmonary Embolism Present on Admission: No
--- NOTE | 2020-08-06 08:33 | PM.DS.1 ---
History of Present Illness History of Present Illness Date Patient Seen: 08/06/20 Time Patient Seen: 08:33 Chief complaint: Translaminar Interbody Fusion/Laminotomy Narrative: Refer to previous HPI. Discharge Providers Provider Date of admission: 08/03/20 06:23 Discharge Date: 08/06/20 Primary care physician: Ulises Marina MD Consults: 08/03/20 13:04 Consult to Occupational Therapy Evaluate & Treat Comment: Physician Instructions: Evaluate and treat Consult to Physical Therapy Evaluate & Treat Comment: Physician Instructions: Evaluate and Treat Discharge provider: Beni Sandoval PA-C Summary Hospital Course Discharge Diagnosis: L4-5 spinal stenosis with radiculopathy History of L5-S1 fusion L4-5 spondylosis with radiculopathy Status post L4-5 posterolateral and posterior interbody fusion, L4-5 posterior interbody cage placement, L5-S1 posterior non-segmental instrumentation removal, L5-S1 revision laminectomy with exploration of fusion, L4-5, L5-S1 posterior segmental instrumentation with pedicle screw placement, L5-S1 posterolatearl fusion, [place] of bone marrow from iliac crest through a separate incision, Utilization of microsurgical technique and operating microscope Hospital Course: Patient was admitted to the hospital following the above-listed procedure for the above-listed diagnosis. Following the procedure the patient has been convalescing appropriately and pain is managed with her current pain management regimen. Patient is successfully work on ambulation with the assistance of a front wheeled walker with physical therapy. Throughout the course of her stay in the hospital the patient has denied fever, chills, nausea, shortness of breath, chest pain, or urinary retention. Sequential compression devices have been used for DVT prophylaxis. Throughout the course of her stay in the hospital her dressing has been changed as needed. Status at Discharge Cognitive/behavioral status at discharge: oriented Functional status at discharge: uses cane/walker Overall status at discharge: patient is progressing back to baseline Exam Vital Signs (past 8 hours): - 08/06/20 05:19 Temperature 97.2 F L Pulse Rate 65 Respiratory Rate 16 Blood Pressure 151/73 H Pulse Oximetry 92 Oxygen Delivery Method Room Air Oxygen Flow Rate 0 Narrative Exam Narrative: Pleasant 75-year-old female postop day 3. Patient is resting comfortably in bed, is in no acute distress, is alert and oriented x3. Skin is warm dry, and the skin surrounding the incision site is free of erythema, warmth, induration, or discharge. Dressing over the incision site is free of strike through skin is clean and dry. Good sensation appreciated throughout the bilateral lower extremities light touch. Ankle dorsiflexion, plantar flexion, eversion, inversion performed bilaterally without difficulty or discomfort. Calves are soft nontender, negative Homans sign. Capillary refill less than 2 seconds, palpable pulses appreciated. No other signs of DVT appreciated at this time. Const General: cooperative, healthy appearing and comfortable Resp Effort & Inspection: normal respiratory effort and able to speak in complete sentences Skin General: no rashes or lesions noted [facility] Medical History Acid reflux Anxiety Asthma CVA (cerebral vascular accident) Depression Easy bruisability History of ETOH abuse HLD (hyperlipidemia) Memory deficit Pneumonia Rheumatoid arthritis Right homonymous hemianopsia Seizure disorder Spinal stenosis TIA (transient ischemic attack) Visual acuity reduced Surgical History History of arthroplasty of left shoulder History of arthroplasty of right hip History of arthroplasty of right shoulder (03/14/20) History of hysterectomy History of lumbar spinal fusion (2013) Hx of cholecystectomy Hx of craniotomy (05/04/16) Hx of hernia repair Hx of kyphoplasty (~2014) Social History household members: spouse Smoking Status: Never smoker alcohol intake: former Discharge Assessment & Plan Assessment and Plan Assessment: Patient is doing well. Plan of Treatment: Patient is to remain weight-bearing as tolerated with the assistance of a front wheeled walker. Current pain management regimen is to be continued as it is adequately controlled the patient's pain level at this time. Dressing over the incision site is to remain intact in changed as needed if his become damaged or soiled. First postoperative visit in clinic is scheduled for 2 weeks following discharge from the hospital. Patient is to avoid bending, twisting, or lifting in excess of 10 lb. The patient is to contact the clinic with any concerns or questions. Any signs of increased redness, swelling, warmth, or discharge from around the incision site should be reported to the clinic. Discharge Plan Discharge Plan Patient Disposition: Home Provider Discharge Comment: Patient cleared for discharge pending PT clearance. Discharge orders & Medications Prescriptions: New acetaminophen 325 mg Tablet 650 mg PO Q6HR PRN (Reason: Pain, Mild (1-3)) Qty: 90 RF: 0 oxycodone 10 mg Tablet 10 mg PO Q3HR PRN (Reason: Pain, Severe (7-10)) Qty: 42 RF: 0 Continued cetirizine 10 mg Tablet 10 mg PO DAILY RF: 0 fluticasone propionate 50 mcg/actuation [place],Suspension 2 spray INTRANASAL DAILY PRN (Reason: Seasonal allergies) RF: 0 memantine 5 mg Tablet 5 mg PO QAM RF: 0 atorvastatin 40 mg Tablet 40 mg PO BEDTIME RF: 0 trazodone 50 mg Tablet 100 mg PO BEDTIME RF: 0 donepezil 10 mg Tablet 5 mg PO BID RF: 0 famotidine 40 mg Tablet 40 mg PO DAILY RF: 0 prednisone 5 mg Tablet 5 mg PO DAILY RF: 0 diphenoxylate-atropine [Lomotil] 2.5-0.025 mg Tablet 1 - 2 tab PO DAILY PRN (Reason: Diarrhea) RF: 0 acetaminophen 500 mg Tablet 1,000 mg PO QD-BID PRN (Reason: Pain) RF: 0 buspirone 10 mg Tablet 10 mg PO TID RF: 0 montelukast 10 mg Tablet 10 mg PO DAILY RF: 0 albuterol sulfate 90 mcg/actuation Hfa Aerosol Inhaler 2 puff INHALATION Q4-6H PRN (Reason: Shortness Of Breath) RF: 0 sertraline 50 mg Tablet 75 mg PO DAILY RF: 0 Restasis 0.05 % Dropperette 2 drp EYE-BOTH DAILY RF: 0 pregabalin 75 mg Capsule 150 mg PO BID RF: 0 levetiracetam [Keppra] 1,000 mg Tablet 1,000 mg PO BID RF: 0 clopidogrel 75 mg Tablet 75 mg PO DAILY RF: 0 Follow up/Referrals: Ulises Marina MD [Primary Care Provider] - Diet/Activity/Treatments Diet: Diet as Tolerated Activity: Weight-bearing as tolerated with the assistance of a front wheeled walker. Avoid bending, twisting, or lifting in excess of 10 lb. Skin/Wound/Dressing Care Report to your healthcare provider any signs of infection, such as:: chills, fever, night sweats, increased pain, unusual drainage and unusual redness Dressing: Dressing over the incision site can be changed as needed if it is damaged or soiled. Other wound treatment: Avoid placing topical ointments over the incision sites. Visit Report/Discharge Packet Instructions: DI for Heart Failure, DI for Prescription Opioid Use, DI for Transforaminal Lumbar Interbody Fusion Stand Alone Forms: Surgery Discharge Discharge Data Primary Care Provider: Ulises Marina VTE Deep Vein Thrombosis/Pulmonary Embolism Present on Admission: No
[2020-08-06 08:48] VITALS: PULSE 62; RESP 20; O2SAT 98
[2020-08-06] MEDS: ALBUTEROL 2.5 MG/3 ML NEB (ADULT) INH (08:48)
--- NOTE | 2020-08-06 08:53 | PC.NURSE ---
Patient is confused this morning. She told the aide that before she was going to get up this morning that she needed to finish her baked beans. BOILER MECHANIC did get patient up she voided 325cc of urine. Back dressing is cdi, with small amount of dried blood. Patient took her am meds well yesterday but had a coughing spell this morning, able to get them down. On ausculation of her lungs, wheezes were heard. Yoshi is aware of this. Patient is getting an albuterol tx now and then her lyrica will be given. Patient was also given an oxycodone 10mg. She is sitting up in her chair and comfortable.
[2020-08-06] MEDS: PREGABALIN 75 MG CAPSULE 150 MG PO (10:31)
[2020-08-06] MEDS: SODIUM CHLORIDE 0.9% FLUSH 10 ML IV (10:31)
--- NOTE | 2020-08-06 10:41 | OT.IP.TRT ---
Current Diagnoses Spinal stenosis, lumbar region without neurogenic claudication (08/03/20) Arthrodesis status (08/03/20) Surgery Performed Operation Date: 08/03/20 07:45 Actual Procedures p L4-5 TLIF, L5-S1 lumbar HWR, exploration of fusion,L4-S1 PSF w/instrumentation - Haritha Brewer MD Occupational Therapy Treatment Note M2 OT-IP Current Condition Start: 08/04/20 13:00 Freq: Status: Active Protocol: Document 08/04/20 10:10 CCC (Rec: 08/04/20 13:19 CCC [id number]) Occupational Therapy Current Condition Current Condition Evaluation Date 08/04/20 Treatment Diagnosis s/p L4-5 TLIF , L4-5 PSF , decreased mobility Diagnosis Onset Date 08/03/20 M3 OT- IP Subjective and Pain Start: 08/04/20 13:00 Freq: Status: Active Protocol: Document 08/06/20 14:32 CGR (Rec: 08/06/20 14:38 CGR [id number]) OT- Subjective Occupational Therapy Visit Type Type Progress Note Visit Start Time 10:13 Visit Stop Time 10:41 Total Visit Minutes 28 Notes cargiver training with pts spouse present OT Pain Assessment Pain When Pain Assessed At Rest Pain Present Pain Present Denied Pain M4 OT- IP ADL's Start: 08/04/20 13:00 Freq: Status: Active Protocol: Document 08/06/20 14:32 CGR (Rec: 08/06/20 14:38 CGR [id number]) OT [id number] Comments OT Self-Feeding Comments Not meal time OT ADL-Grooming Comments OT Grooming Comments Not performed OT ADL-Oral Care Comments Oral Care Comments Not performed OT ADL-Dressing General Eval Lower Body Dressing Ability Independent Areas Needing Assistance Socks Comments OT Dressing Comments Pt was able to perform without AD by bringing her foot to her knee. Pt states understanding for need to perform LB dressing in this way to avoid bending. OT ADL-Toileting General Evaluation Toileting Ability Standby Assistance OT ADL-Bathing Comments OT Bathing Comments Pt declined to perform, states that she will take a shower when she gets home. M5 OT- IP IADL's Start: 08/04/20 13:00 Freq: Status: Active Protocol: Document 08/04/20 10:10 CCC (Rec: 08/04/20 13:19 CCC [id number]) OT-Instrumental Activities of Daily Living Home Safety Awareness Ability to Problem Solve Emergency Unable to Problem Solve Situations Medication Management Medication Management Caregiver Administers Money Management Money Management Caregiver Provides Assistance Meal Preparation Meal Preparation Caregiver Provides Assist Pedicurist Pedicurist Caregiver Provides Assist Driving Driving Caregiver Provides Assist M6 OT- IP Functional Cognition Start: 08/04/20 13:00 Freq: Status: Active Protocol: Document 08/05/20 12:28 [facility] (Rec: 08/05/20 12:42 [facility] [id number]) Cognitive Factors Limiting Selfcare Function Cognitive Ability Level of Alertness Alert,Confusional State Patient Orientation Name Attention Span Ability Capable of Focused Attention, Capable of Sustained Attention Ability to Follow Commands Able to Follow One Step Commands with Increased Time, Able to Follow One Step Commands with Repetition Memory Description Short Term Impaired Safety Awareness Decreased Recall of Precautions,Decreased Ability to Apply Precautions Cognitive Comments Cognitive Assessment Comments Pt continues to have difficulty stating her back precautions and when getting frustrated having more difficulty. Pt expressed to therapist and case picker that she does not feel comfortable to go home today and would rather stay another day to do more caregiver training. Both pt and would benefit from more caregiver training and having difficulty to communicate with each other. Pt insists her sister is coming to assist her , however states she has never been by to assist her in the past. M7 OT- IP Mobility and Balance Start: 08/04/20 13:00 Freq: Status: Active Protocol: Document 08/06/20 14:32 CGR (Rec: 08/06/20 14:38 CGR [id number]) OT- Bed Mobility Assessment Rolling Type of Rolling Log Rolling Level of Assistance Standby Assistance Supine to Sit Supine to Sit Assist Standby Assistance Sit to Supine Sit to Supine Assist Standby Assistance Scooting Scooting to Edge of Bed Standby Assistance OT-Transfer Assessment Sit to and From Stand Sit to and from Stand Standby Assistance Transfers Transfer Ability Standby Assistance Technique Transfer Destination Bed,Chair,Toilet Transfer Technique Stand Step Pivot Devices Transfer Assistive Devices Gait Belt,Front Wheeled Walker Comments Mobility Comments Pt was initially concerned that the walker her brought was different then the one she had been using because it has smaller wheels on the front. Walker was adjusted and tennis balls were removed and pt states that it feels ok. Pt was able to ambulate around the room without difficulty. OT- Balance Assessment Sitting Balance and Reactions Static Sitting Balance Ability Normal Dynamic Sitting Balance Ability Good M8 OT- IP Objective Assessments Start: 08/04/20 13:00 Freq: Status: Active Protocol: Document 08/04/20 10:10 CCC (Rec: 08/04/20 13:19 CCC [id number]) OT Gross Range of Motion Upper Extremity Range of Motion Assessment Right Impaired OT- Coordination Assessment Comments Coordination Comments Arthritic changes in her hands . M9 OT- IP Assessment and Plan Start: 08/04/20 13:00 Freq: Status: Active Protocol: Document 08/06/20 14:32 CGR (Rec: 08/06/20 14:38 CGR [id number]) OT Summary Assessment and Plan Potential Rehabilitation Potential Good Analytic Complexity at Evaluation Moderate Summary OT Impairments Pain,Balance,Functional Cognition,Functional Mobility, Grooming,Dressing,Toileting, Bathing,Toilet Transfers, Shower Transfers,Activity Tolerance Progress Towards Goals Slow Progress due to Pain,Slow Progress due to Cognition Assessment Summary Pt and educated on back precautions and safe mobility with the walker. Pt declined shower and performed with SBA throughout session. Pt states she feels ready for home. Goals Grooming Goal Standby Assistance Dressing Goal Minimal Assistance Toileting Goal Minimal Assistance Bathing Goal Moderate Assistance Toilet Transfer Goal Standby Assistance Shower Transfer Goal Standby Assistance Patient/Caregiver Education Goal Demonstrate Post-Op Precautions,Caregiver Independent Assisting Patient Days to Meet Goals 4 Frequency of Treatment Frequency Of Treatment Once a Day Treatment Plan OT Treatment Plan ADL Training,Functional Cognition Training,Functional Mobility,Patient/Family Education,Discharge Planning Discharge Recommendations OT Discharge Recommendations Home with / Assist Available,Home Health Transportation Needs at Discharge Private Vehicle
--- NOTE | 2020-08-06 11:44 | PT.IPTN ---
Current Diagnoses Spinal stenosis, lumbar region without neurogenic claudication (08/03/20) Arthrodesis status (08/03/20) Surgery Performed Operation Date: 08/03/20 07:45 Actual Procedures p L4-5 TLIF, L5-S1 lumbar HWR, exploration of fusion,L4-S1 PSF w/instrumentation - Haritha Brewer MD Physical Therapy Treatment Note M2 PT-IP Current Condition Start: 08/04/20 08:39 Freq: NEEDED Status: Active Protocol: Document 08/04/20 10:49 AW (Rec: 08/04/20 12:01 AW [id number]) Physical Therapy Current Condition Current Condition Evaluation Date 08/04/20 Treatment Diagnosis s/p L4-S1 TLIF; impaired mobility and gait Onset Date 08/03/20 Precautions Lumbar Precautions Log Roll,No Twisting,Limit Bending,Lifting Restriction of 10 lbs,Gait Belt above Incisional Area Other Precautions prior CVA - blurred vision, word-finding, memory M3 PT-IP Subjective Start: 08/04/20 08:39 Freq: NEEDED Status: Active Protocol: Document 08/06/20 11:25 CLB (Rec: 08/06/20 11:57 CLB [id number]) Subjective Physical Therapy Visit Type Type Treatment Note Visit Start Time 11:25 Visit Stop Time 11:44 Total Visit Minutes 19 Number of LEAD HOUSEKEEPER Visits 1 Physical Therapy Visit Comments Patient Comments Pt willing to ambulate with therapy. Therapy Pain Assessment Pain When Pain Assessed During Mobility Pain Present Pain Present Pain Reported Location back Intensity 5 Scale Used Numeric (0 - 10) Pain Management Techniques Modification of Treatment M4 PT-IP Mobility and Gait Start: 08/04/20 08:39 Freq: NEEDED Status: Active Protocol: Document 08/06/20 11:25 CLB (Rec: 08/06/20 11:57 CLB [id number]) PT-Bed Mobility Assessment Rolling Type of Rolling Log Rolling,Roll to Left Level of Assist Standby Assistance Supine to Sit Supine to Sit Standby Assistance,Bedrails Sit to Supine Sit to Supine Standby Assistance,Bedrails Scooting Scooting to Edge of Bed Standby Assistance PT-Transfer Assessment Sit to and From Stand Sit to and from Stand Standby Assistance,Use of Upper Extremities Equipment Transfer Assistive Device Gait Belt,Front Wheeled Walker Orthotic/Prosthetic Devices or Brace: No Transfers Transfer Destination Bed Transfer Technique Stand Step Pivot Transfer Ability Level of Assist Standby Assistance,1 Person Assistance,Use of Upper Extremities Comments Mobility Comments Pt requires SBA for all mobility and ambulated with FWW/SBA 500+ft. Pt able to ambulate with good anthony, foot clearance and step length . Pt with improved posture during gait. Pt left in bed with all needs within reach and present. Informed RN pt was requesting pain meds . Gait Assessment Gait Gait Assistance Required: Standby Assistance Distance (Feet) 500 Assistive Devices Assistive Device Gait Belt,Front Wheeled Walker Orthotic/Prosthetic Devices or Brace: No Gait Deviations General Gait Pattern Antalgic,Flexed Trunk Factors Limiting Gait Function Factors Limiting Gait Function Decreased Activity Tolerance, Decreased Strength,Limited Range of Motion,Pain,Poor Balance,Poor Safety Awareness Comments Gait Comments See mobility comments. M5 PT-IP Objective Assessments Start: 08/04/20 08:39 Freq: NEEDED Status: Active Protocol: Document 08/04/20 10:49 AW (Rec: 08/04/20 12:01 AW [id number]) Orientation Orientation/Cognition Level of Alertness Alert Orientation Name,Day of Week,Place, Situation Language Function Ability Word Finding Difficulties Safety Awareness Decreased Safety Awareness Memory Description Short Term Impaired Comments Pt unable to recall back precautions 10 minutes after lengthy discussion. Pt will require frequent reminders and supervision. Gross Range of Motion Lower Extremity ROM Assessment Within Functional Limits Strength Lower Extremity Strength Assessment Bilaterally Impaired Hip 3+/5 Knee 4-/5 Ankle 4-/5 Comments Strength Comments Great toe 3/5 bilaterally Sensation Assessment Sensation Gross Sensation Right LE Impaired,Left LE Impaired Light Touch Impaired Proprioception (Position) Impaired Sensation Description Numbness Comments Sensation Comments Pt reports dull sensation in bilateral MT heads/toes and heels with left more affected than right. Muscle Tone Muscle Tone WNL Yes M6 PT-IP Treatment Start: 08/04/20 08:39 Freq: NEEDED Status: Active Protocol: Document 08/05/20 13:20 AB (Rec: 08/05/20 13:56 AB [id number]) Physical Therapy Treatment Education Education Provided Safety M7 PT-IP Assessment and Plan Start: 08/04/20 08:39 Freq: NEEDED Status: Active Protocol: Document 08/06/20 11:25 CLB (Rec: 08/06/20 11:57 CLB [id number]) PT Summary Assessment and Plan Potential Rehabilitation Potential Good Summary Impairments Pain,ROM,Strength,Balance, Coordination,Cognition,Bed Mobility,Transfers,Gait, Activity Tolerance Progress Towards Goals Safe For Discharge Assessment Summary Pt requiring SBA for all bed mobility and ambulation. Pt increased gait distance to 500 +ft w/FWW/SBA. Pt has difficulty stating back precautions when asked. Pt plans to d/c with to assist as well as sister. Goals Bed Mobility Goal Standby Assistance Transfer Goal Standby Assistance,Front Wheeled Walker Gait Goal Standby Assistance,Front Wheel Walker Gait Distance 100 Other Goals - up/down platform step x 2 with POWER LINE INSTALLER AND REPAIRER or FWW CGA Days to Meet Goals 5 Frequency of Treatment Frequency Of Treatment Twice a Day Treatment Plan Physical Therapy Treatment Plan Bed Mobility Training,Transfer Training,Gait Training, Therapeutic Exercise,Balance Retraining,Post Op Education, Discharge Planning,Hot or Cold Pack,Neuromuscular Re-ed Precautions Lumbar Precautions Log Roll,No Twisting,Limit Bending,Lifting Restriction of 10 lbs,Gait Belt above Incisional Area Other Precautions prior CVA - blurred vision, word-finding, memory Recommendations To Nursing Amount of Assist Needed 1 Person Assist Discharge Recommendations PT Discharge Recommendations Home with 15/10 Assist Available,Home Health Transportation Needs at Discharge Private Vehicle
--- NOTE | 2020-08-06 12:45 | CM.DPNOTE ---
Addendum entered by BIANKA Albarran 08/06/20 15:06: Efax not going through so paper faxed referral to [facility], included completed F2F, HH order w/clinical and DC Summary. KALLIE w/ Portia at [facility]. In addition, IMM provided to patient and spouse. Original Note: DC Note DC order in place and patient eager to return home. Spouse at bedside and will transport patient home. Both agreeable to , no agency preference. Efax referral w/DC Summary sent to [facility] per calendar rotation. Requested RN/PT/OT/NURSE INFORMATICIST with patient's permission. Patient cleared by therapy team for this plan Plan: DC home w/spouse to assist as needed, [facility] has referral for RN/PT/OT/NURSE INFORMATICIST JW
== END 2020-08-06 13:55 | disposition home or self-care (01) | DRG 454 ==
PROVIDERS: Admitting Provider Orthopaedic Surgery Orthopaedic Surgery of the Spine; Family Provider Family Medicine; PCP Family Medicine; Referring Provider Orthopaedic Surgery Orthopaedic Surgery of the Spine; Visit Provider Orthopaedic Surgery Orthopaedic Surgery of the Spine
PROC: 0SG00AJ Fusion of Lumbar Vertebral Joint with Interbody Fusion Device, Posterior Approach, Anterior Column, Open Approach (ICD-10-PCS; principal; 2020-08-03 07:45)
DX: M48.061 Spinal stenosis, lumbar region without neurogenic claudication (principal); M96.0 Pseudarthrosis after fusion or arthrodesis; G40.802 Other epilepsy, not intractable, without status epilepticus; I69.398 Other sequelae of cerebral infarction; J45.909 Unspecified asthma, uncomplicated; F41.9 Anxiety disorder, unspecified; F32.9 Major depressive disorder, single episode, unspecified; M06.9 Rheumatoid arthritis, unspecified; K21.9 Gastro-esophageal reflux disease without esophagitis; M47.26 Other spondylosis with radiculopathy, lumbar region; Z20.822 Contact with and (suspected) exposure to COVID-19
CPT/HCPCS: 72100; 76000; 87635; 94640; 97116; 97162; 97166; 97530; 97535; C1776; A9270; C9290; J0330; J0461; J0690; J1100; J1170; J2250; J2405; J2704; J3010; J7613

== ENCOUNTER 2022-07-06 12:26 | Outpatient (CLI) | payer MEDICARE, OTHER, SELFPAY ==
[2020-08-03 13:04] VITALS: BMI 25.9
[2022-07-06] VITALS (7 sets, daily range): BP systolic 143–168; BP diastolic 82–100; PULSE 81–92; RESP 15–20; TEMP 36.2–36.9; O2SAT 95–98; BMI 24.2
--- NOTE | 2022-07-06 | DI.CT.S_ITS ---
PROCEDURE: CT LUMBAR SPINE WO CON INDICATIONS: Spinal stenosis, lumbar region TECHNIQUE: Noncontrast 3 mm thick sections acquired from the T12 level to the sacrum. Sagittal and coronal reformats were constructed. For radiation dose reduction, the following was used: automated exposure control. COMPARISON: Merged With [facility], CT, CT LUMBAR SPINE WITHOUT CONTRAST, 05/26/2020, 13:11. FINDINGS: Image quality: Excellent. Bones: L1 and L2 compression fracture with vertebroplasty treatment noted. There is anterior perivertebral venous casting of methylmethacrylate, and small amount of casting in the basivertebral venous plexus. L4-5 and L5-S1 interbody fusion with posterior bre and screw instrumentation in good position. No evidence of hardware failure or loosening. In the posterior paraspinal soft tissues on the right at the L2-3 level, there is probable contrast material or calcification noted. T12-L1: Disc space narrowing with circumferential disc bulge present. Mild central stenosis. Moderate right and mild left foraminal stenosis L1-L2: Disc space narrowing and hypertrophic facet joints present. Posterior disc bulge associated with mild to moderate central stenosis. Moderate to severe right and mild left foraminal stenosis L2-L3: Disc space narrowing with circumferential disc bulge. There appears to be contrast material in the posterior annulus associated with posterior and lateral disc. Moderate central stenosis. Severe left and moderate right foraminal stenosis L3-L4: Disc space narrowing with circumferential disc bulge results in moderate central stenosis. Moderate bilateral foraminal stenosis L4-L5: Discectomy and fusion with left hemilaminectomy/medial facetectomy. No osseous central stenosis. Moderate to severe right and no left foraminal stenosis L5-S1: Discectomy and fusion. No central stenosis. Moderate bilateral foraminal stenosis. Soft tissues: No retroperitoneal masses or hematomas. Visualized aorta is normal in caliber. IMPRESSION: Increased density in the right paraspinal soft tissues at the L3-4 and L2-3 levels as well as increased density in the L 23 disc probably associated with contrast from recent procedure. Correlate with clinical history. Instrumented L4-5 and L5-S1 discectomy and fusion. No evidence of hardware failure or loosening. Multilevel degenerative disc disease and arthropathy results in varying degrees of central and foraminal stenosis including moderate to severe right foraminal stenosis at L1-2 and moderate central stenosis L2-3 and L3-4 Approved by: Jacques Boggs M.D. on 07/06/2022 at 17:25
--- NOTE | 2022-07-06 14:47 | SUR.PHASEII ---
Per report from RN Mayelin- procedure was not completed, but did have a CT completed. Pt meets all DC criteria per Dr. Jerez orders- No N/V No SHIN No pain Bandaind c/d/i on right lower back.
--- NOTE | 2022-07-06 14:51 | SUR.PHASEII ---
Pt states she was told the procedure was not possible today. She has no follow up appt. Vitals wnl. no DC instructions. Meets DC criteria.
== END 2022-07-06 14:49 | disposition home or self-care (01) ==
PROVIDERS: Family Provider Family Medicine; PCP Family Medicine; Referring Provider Physical Medicine & Rehabilitation; Visit Provider Physical Medicine & Rehabilitation
DX: M48.061 Spinal stenosis, lumbar region without neurogenic claudication (principal)
CPT/HCPCS: 72131